=== PATIENT | female | born 1955 | race Caucasian/White ===

== ENCOUNTER 2017-09-17 17:11 | Inpatient (IN) | payer MEDICARE, MEDICAID ==
[~2017-09-17] VITALS: Ht 162.6 cm; Wt 114.3 kg
[~2017-09-17 17:11] MED LIST: ASPIR 8181 MG PO; CALCIUM 500 +1 EAC5 PO; EUCERIN CREME120 GM TOP; GERI-HYDROLAC140 GM TOP; HUMALOG100 UNIT/2 SUBQ; JANUVIA 50 MG T50 M1 PO; KEFLEX500 M2 PO; KETOCONAZOLE15 GM TOP; LANTUS100 UNIT/M SUBQ; LIORESAL 10 MG10 MG PO; LISINOPRIL5 MG PO; ONDANSETRON HCL4 M2 PO; PEPCID20 MG PO; PROTONIX40 M1 PO; VITAMIN D1000 UNI1 PO; ZOCOR20 MG PO; ZOFRAN4 MG PO
[2017-09-17] MEDS ORDERED: CARRINGTON MOIS99 G2 TOP (17:23)
[2017-09-17] MEDS ORDERED: REGLAN 10 MG TA10 MG PO (17:26)
[2017-09-17] MEDS ORDERED: THEREMS-M1 EACH PO (17:26)
[2017-09-17] MEDS ORDERED: ZANTAC 150MG T150 MG PO (17:26)
[2017-09-17] MEDS ORDERED: ZOFRAN4 MG PO (17:27)
[2017-09-17] MEDS ORDERED: NYAMYC15 GM TOP (17:27)
[2017-09-17] MEDS ORDERED: CLARITIN10 MG PO (17:27)
[2017-09-17 17:39] LABS: ABSOLUTE BASOPHILS 0.1 thou/uL (0.0-0.2); ABSOLUTE LYMPHOCYTES 1.9 thou/uL (0.8-5.3); ABSOLUTE MONOCYTES 0.6 thou/uL (0.0-1.2); ABSOLUTE NEUTROPHILS 13.1 thou/uL (1.6-8.1); BASOPHILS 0.5 %; EOSINOPHILS 0.1 %; HEMATOCRIT 47.7 % (37.0-47.0); HEMOGLOBIN 15.2 gm/dL (12.0-15.0); LYMPHOCYTES 12.3 %; MCH 24.3 pg (26.0-34.0); MCHC 31.9 g/dL (28.0-37.0); MONOCYTES 3.7 %; NUCLEATED RBCS 0 /100WBC; PLATELET COUNT* 328 thou/uL (150-400); POLYS 83.4 %; RBC 6.27 mil/uL (4.20-5.00); RDW-CV 18.7 % (10.5-14.5); WBC 15.7 thou/uL (4.0-11.0)
[2017-09-17 17:46] LABS: ANION GAP 7 mmol/L (7-16); BUN 12 mg/dL (7-18); CALCIUM 9.6 mg/dL (8.5-10.1); CHLORIDE 102 mmol/L (98-107); CO2 32 mmol/L (21-32); CREATININE 0.6 mg/dL (0.6-1.3); GLUCOSE 307 mg/dL (70-99); POTASSIUM 3.9 mmol/L (3.5-5.1); SODIUM 141 mmol/L (136-145)
[2017-09-17 17:53] LABS: ALBUMIN 3.2 g/dL (3.4-5.0); ALKALINE PHOSPHATASE 126 U/L (46-116); LIPASE 919 U/L (73-393); SGOT 21 U/L (15-37); SGPT 35 U/L (30-65); TOTAL BILIRUBIN 0.3 mg/dL (<0.1-1.0); TOTAL PROTEIN 7.6 g/dL (6.4-8.2); TROPONIN-I LEVEL <0.06 ng/mL (<0.06)
[2017-09-17 18:02] LABS: PROTIME 9.9 Seconds (9.20-11.50)
[2017-09-17 20:31] VITALS: BP 189/90
[2017-09-17 23:32] VITALS: BP 169/106
[2017-09-18 04:00] VITALS: BP 145/67
[2017-09-18 05:26] LABS: HEMOGLOBIN 14.1 gm/dL (12.0-15.0); MCH 23.9 pg (26.0-34.0); MCHC 31.4 g/dL (28.0-37.0); MPV 9.3 fl. (7.2-11.1); RBC 5.92 mil/uL (4.20-5.00); RDW-CV 19.3 % (10.5-14.5)
[2017-09-18 05:44] LABS: ALBUMIN 2.9 g/dL (3.4-5.0); CALCIUM 8.6 mg/dL (8.5-10.1); CREATININE 0.9 mg/dL (0.6-1.3); TOTAL BILIRUBIN 0.3 mg/dL (<0.1-1.0); TOTAL PROTEIN 6.3 g/dL (6.4-8.2)
[2017-09-18 05:53] LABS: WBC 32.6 thou/uL (4.0-11.0)
[2017-09-18 07:50] VITALS: BP 117/44
[2017-09-18 08:36] LABS: HEMATOCRIT 41.8 % (37.0-47.0); MCH 23.7 pg (26.0-34.0); MCHC 31.2 g/dL (28.0-37.0); MCV 75.9 fL (80.0-100.0); MPV 9.2 fl. (7.2-11.1); RBC 5.5 mil/uL (4.20-5.00); RDW-CV 18.4 % (10.5-14.5); WBC 37.3 thou/uL (4.0-11.0)
[2017-09-18 12:03] VITALS: BP 129/59
--- NOTE | 2017-09-18 13:02 | EKG ---
[place] [address] ELECTROCARDIOGRAM REPORT Name: JENNIFER AVILA Room: [address] IN [facility].#: [id number] Admission: 09/17/17 Attend Phys: Joyce Tavares MD Discharge: Date of : 51 Report #: [id number] THIS REPORT FOR: //name// [facility] ED Test Date: 2017-09-17 Test Time: 17:30:04 Pat Name: JENNIFER AVILA Department: Room: Gender: F [employer] War[employer] Officer: Idalia ESCOBEDO : 1955 Requested By: Chet Rod Order Number: [id number] MD: Scotty Rodriguez Measurements Intervals [place] Rate: 118 P: 57 KS: 143 QRS: 36 QRSD: 86 T: 53 QT: 330 QTc: 463 Interpretive Statements Sinus tachycardia Baseline wander in lead(s) V2,V6 Compared to ECG 03/24/2017 08:16:47 Heart rate has increased Electronically Signed On 09-18-2017 13:02:05 CDT by Scotty Rodriguez [email or web address] <ELECTRONICALLY SIGNED> By: Scotty Rodriguez MD, [facility] 09/18/17 1302 1730 1730 Scotty Rodriguez MD, [facility] /EPI
[2017-09-18 15:06] LABS: URINE BILIRUBIN NEGATIVE (Negative); URINE BLOOD 2+ (Negative); URINE COLOR YELLOW; URINE GLUCOSE-RANDOM 3+ (Negative); URINE KETONES NEGATIVE (Negative); URINE NITRITE-REFLEX NEGATIVE (Negative); URINE PROTEIN 1+ (Negative); URINE SPECIFIC GRAVITY >= 1.030 (1.005-1.030); URINE UROBILINOGEN 0.2 E.U./dl (0.2-1.0)
[2017-09-18 15:11] LABS: URINE CLARITY TURBID; URINE LEUKOCYTES-REFLEX 2+ (Negative)
[2017-09-18 15:19] LABS: SQUAMOUS 4-10 Moderate /LPF (0-3); URINE WBC-REFLEX >25 Many /HPF (0-5); WBC CLUMPS Few (None Seen)
[2017-09-18 15:20] LABS: AMORPHOUS PHOSPHATES Moderate /LPF (None Seen); CASTS None Seen /LPF (None Seen); MUCUS 0-3 Light strn/LPF (None Seen)
[2017-09-18 16:00] VITALS: BP 109/69
[2017-09-18 20:00] VITALS: BP 118/58
[2017-09-18 23:59] VITALS: BP 126/47
[2017-09-19 03:33] VITALS: BP 127/66
[2017-09-19 04:56] LABS: CALCIUM 7.4 mg/dL (8.5-10.1); CREATININE 0.5 mg/dL (0.6-1.3); POTASSIUM 3.8 mmol/L (3.5-5.1)
[2017-09-19 04:59] LABS: HEMATOCRIT 35.4 % (37.0-47.0); MCH 24.3 pg (26.0-34.0); MCHC 31.2 g/dL (28.0-37.0); MPV 8.9 fl. (7.2-11.1); NUCLEATED RBCS 0 /100WBC; PLATELET COUNT* 237 thou/uL (150-400); RBC 4.54 mil/uL (4.20-5.00); RDW-CV 19.1 % (10.5-14.5); WBC 23.4 thou/uL (4.0-11.0)
[2017-09-19 05:44] LABS: ABSOLUTE MONOCYTES 1.4 thou/uL (0.0-1.2); ANISOCYTOSIS 1+; PLATELET ESTIMATE ADEQUATE; POIKILOCYTOSIS 1+
[2017-09-19 08:30] VITALS: BP 130/59
[2017-09-19 10:47] VITALS: BP 127/66
--- NOTE | 2017-09-19 11:52 | CON ---
[address] [address] CONSULTATION Name: JENNIFER AVILA Room: [address] IN .R.#: [id number] Admission: 09/17/17 Attend Phys: Joyce Tavares MD Discharge: Date of : 51 Report #: [id number] THIS REPORT FOR: //name// CC: Joyce Garcia DATE OF SERVICE: 09/18/2017 ATTENDING PHYSICIAN: Dr. Tavares. REASON FOR EVALUATION: Pancreatitis with marked leukocytosis. HISTORY OF PRESENT ILLNESS: Chart reviewed, patient examined. This is a 62-year-old woman with multiple sclerosis diagnosed in her 20s. Also has diabetes mellitus and paraplegia as a complication. She has got issue of a sacral decubitus ulcer, but developed nausea with emesis. Evaluation suggested possible gastric outlet obstruction. Initial white count was mildly elevated; however, had increased over serial studies up to 37,000. She is moderately encephalopathic and appears to be quite ill. She did have a temperature max of 101.0, more recently she was afebrile. Evaluation included a lactic acid of 2.0 and lipase elevated at 919, however, repeat was this morning down to 241. Urinalysis did show greater than 25 white cells and 10-30 bacteria. Empirically started on antibiotics consisted of ceftriaxone and levofloxacin. ALLERGIES: None known. CURRENT MEDICATIONS: Include bisacodyl, insulin, levofloxacin 500 IV daily, docusate sodium, ceftriaxone 1 gram q. 12 and pantoprazole. PAST MEDICAL HISTORY: As described above, diabetes mellitus, multiple sclerosis, hypertension, history of depression, anxiety and some paraplegia with incontinence. SOCIAL HISTORY: Smokes 10 cigarettes per day. No ethanol. No illicit drug use. FAMILY HISTORY: Noncontributory. REVIEW OF SYSTEMS: Somewhat limited. Does admit to some mild dyspnea. PHYSICAL EXAMINATION: GENERAL: She is chronically ill appearing, undernourished, in mild to moderate distress. VITAL SIGNS: Temperature now 98.3 with a T-max of 101.0, pulse 107, respirations 18 and blood pressure 109/69. SKIN: Warm, dry [place] [address] CONSULTATION Name: JENNIFER AVILA Room: [address] IN [facility]#: [id number] Admission: 09/17/17 Attend Phys: Joyce Tavares MD Discharge: Date of : 51 Report #: [id number] HEENT: Some ____ of the cervical spine although I do not think it is true meningismus. LUNGS: Few scattered coarse breath sounds and crackles at the bases. HEART: Tachycardic, regular and soft systolic murmur. ABDOMEN: Soft. It is distended. I do not appreciate any peritoneal signs. GENITOURINARY AND RECTAL: Deferred. LABORATORY DATA: Urinalysis as described above greater than 25 white cells. Lactic acid 2.0. CBC most recently white count 37.3, H and H 13.0 and 41.8 and platelets of 308. Sodium 141, potassium 3.9, chloride 102, bicarbonate is 32, anion gap of 7, BUN and creatinine 12 and 0.6 and glucose was 307. AST of 21, ALT of 35. Lipase of 919. Estimated GFR 101. Total protein 7.6 and albumin of 3.2. ASSESSMENT: Gastric outlet obstruction in the setting of had developed some fevers, certainly suggests probably has a complicated urinary tract infection as well, risk of aspiration. We will go ahead and check a chest x-ray. Continue empiric therapy for now. We will monitor expectantly. Certainly risk for nosocomial related infectious complications, not excluding adverse drug effects. <ELECTRONICALLY SIGNED> By: Tobin Ortiz MD 09/19/17 1152 1612 0505Jochristina Ortiz MD /nt
[2017-09-19 14:00] VITALS: BP 94/44
[2017-09-19 16:00] VITALS: BP 87/39
[2017-09-19 20:00] VITALS: BP 114/61
[2017-09-20] VITALS: BP 136/62
[2017-09-20 04:00] VITALS: BP 114/70
[2017-09-20 04:52] LABS: PCO2 37.5 mmHg (35.0-45.0)
[2017-09-20 04:53] LABS: BE -1.6 mmol/L (-2 to +3); HCO3 22.8 mmol/L (22.0-26.0); PO2 54.7 mmHg (75.0-100.0)
[2017-09-20 09:00] VITALS: BP 128/75
[2017-09-20 09:27] LABS: ABSOLUTE BASOPHILS 0.1 thou/uL (0.0-0.2); ABSOLUTE EOSINOPHILS 0.3 thou/uL (0.0-0.7); ABSOLUTE LYMPHOCYTES 2.3 thou/uL (0.8-5.3); ABSOLUTE MONOCYTES 0.7 thou/uL (0.0-1.2); ABSOLUTE NEUTROPHILS 10.1 thou/uL (1.6-8.1); BASOPHILS 0.6 %; EOSINOPHILS 2.1 %; HEMATOCRIT 38.1 % (37.0-47.0); HEMOGLOBIN 11.7 gm/dL (12.0-15.0); LYMPHOCYTES 17.2 %; MCH 24.1 pg (26.0-34.0); MCHC 30.7 g/dL (28.0-37.0); MCV 78.5 fL (80.0-100.0); MONOCYTES 5.2 %; MPV 9.4 fl. (7.2-11.1); NUCLEATED RBCS 0 /100WBC; PLATELET COUNT* 246 thou/uL (150-400); POLYS 74.9 %; RBC 4.86 mil/uL (4.20-5.00); WBC 13.4 thou/uL (4.0-11.0)
[2017-09-20 09:36] LABS: ALBUMIN 2.1 g/dL (3.4-5.0); CALCIUM 7.6 mg/dL (8.5-10.1); CREATININE 0.5 mg/dL (0.6-1.3); POTASSIUM 3.7 mmol/L (3.5-5.1); TOTAL BILIRUBIN 0.3 mg/dL (<0.1-1.0); TOTAL PROTEIN 4.9 g/dL (6.4-8.2)
[2017-09-20 12:52] VITALS: BP 155/82
[2017-09-20 16:44] VITALS: BP 149/70
[2017-09-20 18:07] LABS: HSV 1 DNA Negative (Negative); HSV 2 DNA Negative (Negative)
[2017-09-20 20:00] VITALS: BP 141/80
[2017-09-21] VITALS: BP 148/67
[2017-09-21 02:04] LABS: BE 1.9 mmol/L (-2 to +3); HCO3 25.2 mmol/L (22.0-26.0); PO2 92.2 mmHg (75.0-100.0); pH 7.475 (7.340-7.450)
[2017-09-21 02:58] LABS: URINE BILIRUBIN NEGATIVE (Negative); URINE BLOOD NEGATIVE (Negative); URINE CLARITY CLEAR; URINE COLOR YELLOW; URINE GLUCOSE-RANDOM TRACE (Negative); URINE KETONES TRACE (Negative); URINE LEUKOCYTES-REFLEX NEGATIVE (Negative); URINE NITRITE-REFLEX NEGATIVE (Negative); URINE PROTEIN NEGATIVE (Negative); URINE SPECIFIC GRAVITY 1.015 (1.005-1.030); URINE UROBILINOGEN 0.2 E.U./dl (0.2-1.0)
[2017-09-21 04:00] VITALS: BP 143/52
[2017-09-21 04:33] LABS: ABSOLUTE BASOPHILS 0.1 thou/uL (0.0-0.2); ABSOLUTE EOSINOPHILS 0.3 thou/uL (0.0-0.7); ABSOLUTE LYMPHOCYTES 2.3 thou/uL (0.8-5.3); ABSOLUTE MONOCYTES 0.7 thou/uL (0.0-1.2); ABSOLUTE NEUTROPHILS 8.2 thou/uL (1.6-8.1); BASOPHILS 0.5 %; EOSINOPHILS 2.8 %; HEMATOCRIT 36.8 % (37.0-47.0); HEMOGLOBIN 11.6 gm/dL (12.0-15.0); LYMPHOCYTES 19.7 %; MCH 24.1 pg (26.0-34.0); MCHC 31.5 g/dL (28.0-37.0); MCV 76.6 fL (80.0-100.0); MONOCYTES 6.3 %; MPV 8.5 fl. (7.2-11.1); NUCLEATED RBCS 0 /100WBC; PLATELET COUNT* 265 thou/uL (150-400); POLYS 70.7 %; RBC 4.81 mil/uL (4.20-5.00); RDW-CV 18.3 % (10.5-14.5); WBC 11.5 thou/uL (4.0-11.0)
[2017-09-21 04:46] LABS: ALBUMIN 2.1 g/dL (3.4-5.0); CALCIUM 7.7 mg/dL (8.5-10.1); CREATININE 0.5 mg/dL (0.6-1.3); POTASSIUM 3.2 mmol/L (3.5-5.1); TOTAL BILIRUBIN 0.4 mg/dL (<0.1-1.0); TOTAL PROTEIN 5.8 g/dL (6.4-8.2)
[2017-09-21 08:00] VITALS: BP 148/80
[2017-09-21 12:40] VITALS: BP 157/72
[2017-09-21 16:33] VITALS: BP 137/69
[2017-09-21 20:00] VITALS: BP 136/70
[2017-09-22] VITALS: BP 129/60
[2017-09-22 04:00] VITALS: BP 139/62
[2017-09-22 04:53] LABS: HEMATOCRIT 37.4 % (37.0-47.0); HEMOGLOBIN 11.6 gm/dL (12.0-15.0); MCH 24.1 pg (26.0-34.0); MCHC 31.1 g/dL (28.0-37.0); MCV 77.6 fL (80.0-100.0); MPV 8.7 fl. (7.2-11.1); RBC 4.82 mil/uL (4.20-5.00); RDW-CV 18.1 % (10.5-14.5); WBC 10.4 thou/uL (4.0-11.0)
[2017-09-22 05:00] LABS: CALCIUM 8.1 mg/dL (8.5-10.1); CREATININE 0.4 mg/dL (0.6-1.3); MAGNESIUM 2.1 mg/dL (1.8-2.4); POTASSIUM 3.2 mmol/L (3.5-5.1)
[2017-09-22 08:00] VITALS: BP 130/63
--- NOTE | 2017-09-22 10:00 | CON ---
[address] [address] CONSULTATION Name: JENNIFER AVILA Room: [address] IN M.R.#: [id number] Admission: 09/17/17 Attend Phys: Joyce Tavares MD Discharge: Date of : 53 Report #: [id number] THIS REPORT FOR: //name// CC: Joyce Garcia MD DICTATED BY: Jess Lopez [facility] DATE OF SERVICE: 09/18/2017 PRIMARY CARE PHYSICIAN: Carlos Garcia MD Please note at the time of this dictation, the patient was seen and physically examined by myself. REASON FOR CONSULTATION: Nausea and vomiting and possible gastric outlet obstruction. HISTORY OF PRESENT ILLNESS: This is a 62-year-old female who presented from [facility] yesterday afternoon after an abrupt onset of nausea and vomiting. In speaking with her sister, she states she was there and left at 2:00. The patient had no complaints of any nausea or vomiting after eaten her lunch and within 30 minutes after she left, she started having significant nausea and vomiting prompting them to bring her to the Emergency Room. She is unaware of when she has had her last bowel movement and the patient is unable to give us any information in regards to that as well. The patient did have an EGD with us back in March 2017 that showed grade B esophagitis. She was dilated, was noted to have monilial esophagitis and treated for that. Large hiatal hernia was noted. Normal stomach and she had a duodenal diverticulum that was noted. Currently, the patient has an NG down and initially when it was placed she had 600 mL that were removed with no evidence of any bright red blood or any melena at that time. She denies any fever or chills or any abdominal pain at this time. ALLERGIES: No known drug allergies. MEDICATIONS: From home include insulin, metoclopramide, Zantac, multivitamin, Claritin, nystatin, Zofran, aspirin, baclofen, Os-Kevin, Januvia, ketaconazole, Zestril, Zocor, vitamin D, and Eucerin cream. PAST MEDICAL HISTORY: Diabetes, MS, hypertension, depression, anxiety, paraplegic, and venous insufficiency. PAST SURGICAL HISTORY: [place] [address] CONSULTATION Name: JENNIFER AVILA Room: [address] IN [facility].#: [id number] Admission: 09/17/17 Attend Phys: Joyce Tavares MD Discharge: Date of : 53 Report #: [id number] FAMILY HISTORY: Noncontributory. SOCIAL HISTORY: History of tobacco use in the past. Denies any alcohol or illegal drug use at this time. REVIEW OF SYSTEMS: Twelve-point review of systems is essentially negative except what is mentioned in the HPI. PHYSICAL EXAMINATION: VITAL SIGNS: Temperature 36.9, pulse 116, respirations 18, blood pressure 129/59. HEART: Regular rate and rhythm. LUNGS: Diminished, but clear. ABDOMEN: Soft, positive bowel sounds in all 4 quadrants with no masses or tenderness noted. NG in place. LABORATORY DATA: Hemoglobin is 13, hematocrit 41.8, white count is 37.3, platelets 303, MCV is 75.9. Sodium 144, potassium 4, chloride 106, CO2 of 26, BUN is 14, creatinine 0.9, GFR is 63, and glucose is 275. CT of the abdomen and pelvis showed herniation of the distal stomach into the lower mediastinum with associated gastric outlet obstruction with significant fluid distention in the stomach consistent with component of obstruction and also possible volvulus, fecal impaction and moderately large mesenteric adenopathy which was also noted on CT in March and she has got abnormal endometrial thickening as well. Abdominal x-ray done this morning shows hiatal hernia and the NG tube is in position after repositioning showing a decrease in fluid content and decrease in size of the stomach and hiatal hernia. IMPRESSION: 1. Nausea and vomiting, improved. 2. Gastric outlet obstruction, resolved. 3. Fecal impaction and constipation. 4. Leukocytosis. 5. History of paraplegic and mitral stenosis. PLAN: 1. Dulcolax suppository 20 mg followed up with a soapsuds enema to see if this will relieve her fecal impaction. 2. EGD tomorrow with Dr. Morgan. 3. Continue Protonix b.i.d. Thank you for allowing us to participate in this patient's care. Please do not hesitate to call with any questions in regard to this consult. I have personally seen and examined the patient and reviewed labs and imaging. The patient with paraplegia, diabetes mellitus, MS, who also has decubitus [address] [place] [address] CONSULTATION Name: JENNIFER AVILA Room: [address] IN M.R.#: [id number] Admission: 09/17/17 Attend Phys: Joyce Tavares MD Discharge: Date of : 53 Report #: [id number] ulcer. She had an upper endoscopy in the last March which showed grade B esophagitis, large hiatal hernia, duodenal diverticulum and Dinora. She presented with nausea, vomiting and had a CT of abdomen and pelvis, which showed a hiatal hernia with part of the stomach sitting in the chest cavity. Since admission, NG tube has been placed and total of 700 mL of dark color gastric aspirates has been collected. The patient currently denies nausea, vomiting or abdominal pain. Her abdomen is soft, but denies any bowel movement or passing gas from below. She also has fecal impaction that is confirmed by CT scan. She has been given enemas with minimal results. We will continue NG tube to intermittent suction and perform an upper endoscopy to further evaluate her upper GI. If she does not have any significant bowel movement by tomorrow, we will also perform flex sig for fecal disimpaction. <ELECTRONICALLY SIGNED> By: Luisito Morgan MD 09/22/17 1000 1258 2250Luisito Morgan MD /nt
[2017-09-22 11:30] VITALS: BP 146/67
[2017-09-22 15:11] LABS: % SATURATION 11 % (20-39); IRON 25 ug/dL (50-175)
[2017-09-22 16:00] VITALS: BP 144/85
[2017-09-23] VITALS: BP 130/49
[2017-09-23 04:00] VITALS: BP 130/78
[2017-09-23 04:52] LABS: HEMATOCRIT 39.9 % (37.0-47.0); HEMOGLOBIN 12.4 gm/dL (12.0-15.0); MCH 24.5 pg (26.0-34.0); MCHC 31.2 g/dL (28.0-37.0); MCV 78.6 fL (80.0-100.0); MPV 8.6 fl. (7.2-11.1); RBC 5.08 mil/uL (4.20-5.00); RDW-CV 18.2 % (10.5-14.5); WBC 10.1 thou/uL (4.0-11.0)
[2017-09-23 05:22] LABS: CALCIUM 8.3 mg/dL (8.5-10.1); CREATININE 0.5 mg/dL (0.6-1.3); MAGNESIUM 2.2 mg/dL (1.8-2.4); POTASSIUM 4.6 mmol/L (3.5-5.1)
[2017-09-23 08:00] VITALS: BP 132/49
[2017-09-23 12:25] VITALS: BP 120/41
[2017-09-23 15:51] VITALS: BP 130/58
[2017-09-23 20:00] VITALS: BP 109/56
[2017-09-24] VITALS: BP 141/66
[2017-09-24 04:00] VITALS: BP 122/55
[2017-09-24 08:30] VITALS: BP 146/66
[2017-09-24 12:18] VITALS: BP 106/61
[2017-09-24 15:38] VITALS: BP 138/76
[2017-09-25] VITALS: BP 116/49
[2017-09-25 04:18] VITALS: BP 115/55
[2017-09-25 08:00] VITALS: BP 133/69
[2017-09-25 11:45] VITALS: BP 121/53
[2017-09-25 11:46] VITALS: BP 121/53
[2017-09-25] MEDS ORDERED: CEFUROXIME500 MG PO (11:54)
[2017-09-25] MEDS ORDERED: FLEET ENEMA133 ML RECTAL (11:56)
[2017-09-25] MEDS ORDERED: PROTONIX40 M1 PO (13:16)
[2017-09-25 16:00] VITALS: BP 111/66
--- NOTE | 2017-10-04 08:15 | CON ---
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 This patient gives a history that long time ago, she was diagnosed with that. She never had a spinal tap, but she believes she did have an MRI. She does not know what neurologist she saw. She lives in a custodial and she does not have much strength in the lower extremities. At this time, she was admitted with nausea and vomiting. She never had any ophthalmological symptom associated with this. REVIEW OF SYSTEMS: Indicate that this patient has paraplegia, which has been diagnosed secondary to primary progressive MS. She has a history of diabetes, hypertension, depression, anxiety, venous insufficiency. She does have some GI issues and she takes baclofen for the spasms. She thinks her cognition is still intact. Her vision and hearing is still intact. She denies any cardiac or respiratory symptoms associated with present symptomatology. She did have GI and symptom. She does not have any new musculoskeletal, constitutional, dermatological, hematological, throat or allergic symptom associated with present symptomatology. She is moderately built individual who does not have any dysmorphic features of eyes, ears and face. Her visions and hearing looks adequate. PAST MEDICAL HISTORY: Positive for diagnosis of primary progressive MS. FAMILY HISTORY: Negative for early age stroke. SOCIAL HISTORY: She lives in a custodial. PHYSICAL EXAMINATION: Indicate she is alert. She can tell me what month it is. She could not tell me the day. Her speech, concentration, fund of knowledge and memory is at her baseline. Cranial nerve examination 212 looks mostly unremarkable. She has reasonable strength in all upper extremities, but it is estimated to be about 4 or 3 x 5. She is very ataxic in the right upper extremity. In the lower extremity, her position sense is present, but she has no strength. Her tone is symmetrical, but different in the upper and the lower extremities. Her reflexes could be elicited in the lower extremity. Her pulses are difficult to feel. She has no edema, cyanosis or jaundice. She has no thyroid mass. There is no cardiac significant abnormality. No respiratory difficulty or rhonchi was noticed. Her vital signs indicate a blood pressure of 138/76, respirations 17, pulse is 93, temperature is 97.7. [place] [address] CONSULTATION Name: JENNIFER AVILA Room: [address] IN .R.#: [id number] Admission: 09/17/17 Attend Phys: Joyce Tavares MD Discharge: 09/25/17 Date of : 53 Report #: [id number] LABORATORY DATA: Indicate a white count of 10.1, which is better than when she came in, but sodium is 141. CT scan of the head showed white matter changes. IMPRESSION: This patient's clinical presentation is suggestive of primary progressive multiple sclerosis, but I do not know how established the diagnosis was. I did discuss with her that there is a new medication, which has been approved for primary progressive multiple sclerosis. However, that does not reverse the damage which is already done. It might slow down the progression, but has significant side effects. Her diagnosis need to be more conformed and she may even need a spinal tap because she never had one. I gave her the option of doing it as an inpatient or outpatient. She would like to do it as an outpatient and I told her that she can come to my office and we can try to arrange that. If she would like to start the workup here, we can do the MRI of the brain and the whole spine here and the rest of the workup as an outpatient, but to me she indicated she would like to get it done as an outpatient. I will discuss this patient with you tomorrow. <ELECTRONICALLY SIGNED> By: Beto Gomez MD 10/04/17 0815 05 2329Beto Gomez MD /nt
== END 2017-09-25 18:46 | DRG 177 ==
LOC: M.ERS 17:11 → M.TBA-ER 18:15 → M.2W 19:38
PROVIDERS: Family Medicine; Internal Medicine; Specialist; ADMIT Internal Medicine
PROC: 0DB98ZX Excision of Duodenum, Via Natural or Artificial Opening Endoscopic, Diagnostic (ICD-10-PCS; principal; 2017-09-19)
DX: J69.0 Pneumonitis due to inhalation of food and vomit (principal); K85.90 Acute pancreatitis without necrosis or infection, unspecified; J96.01 Acute respiratory failure with hypoxia; G93.40 Encephalopathy, unspecified; R65.10 Systemic inflammatory response syndrome (SIRS) of non-infectious origin without acute organ dysfunction; G82.20 Paraplegia, unspecified; K31.1 Adult hypertrophic pyloric stenosis; E44.0 Moderate protein-calorie malnutrition; Z68.41 Body mass index [BMI] 40.0-44.9, adult; K21.0 Gastro-esophageal reflux disease with esophagitis; E11.43 Type 2 diabetes mellitus with diabetic autonomic (poly)neuropathy; I10 Essential (primary) hypertension; F32.9 Major depressive disorder, single episode, unspecified; F41.9 Anxiety disorder, unspecified; F17.210 Nicotine dependence, cigarettes, uncomplicated; K56.41 Fecal impaction; J01.00 Acute maxillary sinusitis, unspecified; D72.829 Elevated white blood cell count, unspecified; K31.84 Gastroparesis; I05.0 Rheumatic mitral stenosis; G35 Multiple sclerosis; E11.65 Type 2 diabetes mellitus with hyperglycemia; J44.9 Chronic obstructive pulmonary disease, unspecified; K22.70 Barrett's esophagus without dysplasia; K44.9 Diaphragmatic hernia without obstruction or gangrene; K22.2 Esophageal obstruction; K26.9 Duodenal ulcer, unspecified as acute or chronic, without hemorrhage or perforation; L89.150 Pressure ulcer of sacral region, unstageable; D64.9 Anemia, unspecified; E88.09 Other disorders of plasma-protein metabolism, not elsewhere classified; R93.8 Abnormal findings on diagnostic imaging of other specified body structures; E87.6 Hypokalemia; Z79.2 Long term (current) use of antibiotics; Z79.82 Long term (current) use of aspirin; Z79.4 Long term (current) use of insulin; Z79.899 Other long term (current) drug therapy

== ENCOUNTER 2017-10-20 23:47 | Emergency (ER) | payer MEDICARE, MEDICAID ==
[~2017-10-20] VITALS: Ht 162.6 cm; Wt 94.3 kg
[~2017-10-20 23:47] MED LIST changes: +CARRINGTON MOIS99 G2 TOP; +CEFUROXIME500 MG PO; +CLARITIN10 MG PO; +FLEET ENEMA133 ML RECTAL; +NYAMYC15 GM TOP; +REGLAN 10 MG TA10 MG PO; +THEREMS-M1 EACH PO; +ZANTAC 150MG T150 MG PO
[2017-10-21] MEDS ORDERED: LOCOID 0.1% CRE15 GM TOP (00:01)
[2017-10-21] MEDS ORDERED: VITAMINC500 PO (00:01)
[2017-10-21] MEDS ORDERED: OSTERA TABLET1 EAC1 PO (00:05)
[2017-10-21] MEDS ORDERED: MIRALAX17 GM PO (00:06)
[2017-10-21 00:35] LABS: ABSOLUTE BASOPHILS 0.1 thou/uL (0.0-0.2); ABSOLUTE EOSINOPHILS 0.1 thou/uL (0.0-0.7); ABSOLUTE LYMPHOCYTES 1.9 thou/uL (0.8-5.3); ABSOLUTE MONOCYTES 0.6 thou/uL (0.0-1.2); ABSOLUTE NEUTROPHILS 11.1 thou/uL (1.6-8.1); BASOPHILS 0.7 %; EOSINOPHILS 0.6 %; HEMATOCRIT 44.2 % (37.0-47.0); HEMOGLOBIN 13.6 gm/dL (12.0-15.0); MCH 24.5 pg (26.0-34.0); MCHC 30.8 g/dL (28.0-37.0); MCV 79.7 fL (80.0-100.0); MONOCYTES 4.3 %; MPV 8.9 fl. (7.2-11.1); NUCLEATED RBCS 0 /100WBC; PLATELET COUNT* 250 thou/uL (150-400); POLYS 80.4 %; RBC 5.54 mil/uL (4.20-5.00); RDW-CV 17.6 % (10.5-14.5); WBC 13.8 thou/uL (4.0-11.0)
[2017-10-21 00:40] LABS: CALCIUM 8.7 mg/dL (8.5-10.1); CREATININE 0.8 mg/dL (0.6-1.3); POTASSIUM 4.6 mmol/L (3.5-5.1)
[2017-10-21 00:55] LABS: ALBUMIN 2.7 g/dL (3.4-5.0); TOTAL BILIRUBIN 0.2 mg/dL (<0.1-1.0); TOTAL PROTEIN 6.5 g/dL (6.4-8.2)
[2017-10-21 00:59] LABS: NT-PRO BRAIN NAT PEPTIDE 42 pg/mL (<300); TROPONIN-I LEVEL <0.06 ng/mL (<0.06)
[2017-10-21 02:59] LABS: URINE BILIRUBIN NEGATIVE (Negative); URINE BLOOD NEGATIVE (Negative); URINE CLARITY CLEAR; URINE COLOR YELLOW; URINE GLUCOSE-RANDOM 3+ (Negative); URINE KETONES NEGATIVE (Negative); URINE LEUKOCYTES-REFLEX NEGATIVE (Negative); URINE NITRITE-REFLEX NEGATIVE (Negative); URINE PROTEIN NEGATIVE (Negative); URINE SPECIFIC GRAVITY <= 1.005 (1.005-1.030); URINE UROBILINOGEN 0.2 E.U./dl (0.2-1.0)
[2017-10-21 03:48] VITALS: BP 139/73
--- NOTE | 2017-10-22 13:32 | EKG ---
[place] [address] ELECTROCARDIOGRAM REPORT Name: JENNIFER AVILA Room: [facility]#: [id number] Admission: 10/20/17 Attend Phys: Discharge: 10/21/17 Date of : 53 Report #: [id number] THIS REPORT FOR: //name// [facility] ED Test Date: 2017-10-21 Test Time: 00:18:03 Pat Name: JENNIFER AVILA Department: Room: Gender: F Housing Officer: WALTER : 1955 Requested By: Homero Saldaña Order Number: [id number] MD: Abdelrahman Morton Measurements Intervals [place] Rate: 105 P: 72 VT: 132 QRS: 63 QRSD: 88 T: 32 QT: 344 QTc: 455 Interpretive Statements Sinus tachycardia Compared to ECG 09/17/2017 17:30:04 No significant changes Electronically Signed On 10-22-2017 13:32:27 CDT by Abdelrahman Morton [email or web address] <ELECTRONICALLY SIGNED> By: Abdelrahman Morton MD, [facility] 10/22/17 1332 0018 001 Abdelrahman Morton MD, FACC /EPI
== END 2017-10-21 04:18 | disposition home or self-care (01) ==
LOC: M.ERS 23:47
PROVIDERS: Emergency Medicine
DX: R11.10 Vomiting, unspecified (principal); E11.9 Type 2 diabetes mellitus without complications; I10 Essential (primary) hypertension; F32.9 Major depressive disorder, single episode, unspecified; F41.9 Anxiety disorder, unspecified; F17.210 Nicotine dependence, cigarettes, uncomplicated; Z79.4 Long term (current) use of insulin

== ENCOUNTER 2017-11-04 06:37 | Inpatient (IN) | payer MEDICARE, MEDICAID ==
[~2017-11-04] VITALS: Ht 162.6 cm; Wt 95.6 kg
--- NOTE | ~2017-11-04 | PROC ---
[address] [address] PROCEDURE REPORT Name: JENNIFER AVILA Room: [address] IN .R.#: [id number] Admission: 11/04/17 Attend Phys: Zohra Workman Discharge: Date of : 53 Report #: [id number] THIS REPORT FOR: //name// For GI report, please see the Provation report in Perceptive 7 content. By: [facility]8Medical Records Staff YOSEPH /ALEXSANDRA
[~2017-11-04 06:37] MED LIST changes: +LOCOID 0.1% CRE15 GM TOP; +MIRALAX17 GM PO; +OSTERA TABLET1 EAC1 PO; +VITAMINC500 PO
[2017-11-04 06:38] VITALS: BP 144/82
[2017-11-04 07:14] LABS: ABSOLUTE BASOPHILS 0.1 thou/uL (0.0-0.2); ABSOLUTE LYMPHOCYTES 2.6 thou/uL (0.8-5.3); ABSOLUTE MONOCYTES 0.7 thou/uL (0.0-1.2); ABSOLUTE NEUTROPHILS 9.1 thou/uL (1.6-8.1); BASOPHILS 1.1 %; EOSINOPHILS 0.4 %; HEMOGLOBIN 14.6 gm/dL (12.0-15.0); LYMPHOCYTES 20.6 %; MCH 24.8 pg (26.0-34.0); MCV 79.9 fL (80.0-100.0); MONOCYTES 5.6 %; MPV 8.8 fl. (7.2-11.1); NUCLEATED RBCS 0 /100WBC; PLATELET COUNT* 331 thou/uL (150-400); POLYS 72.3 %; RBC 5.89 mil/uL (4.20-5.00); RDW-CV 17.1 % (10.5-14.5); WBC 12.5 thou/uL (4.0-11.0)
[2017-11-04 07:32] LABS: ANION GAP 3 mmol/L (7-16); BUN 10 mg/dL (7-18); CHLORIDE 103 mmol/L (98-107); CO2 35 mmol/L (21-32); CREATININE 0.8 mg/dL (0.6-1.3); GLUCOSE 327 mg/dL (70-99); POTASSIUM 3.7 mmol/L (3.5-5.1); SODIUM 141 mmol/L (136-145)
[2017-11-04 07:39] LABS: ALKALINE PHOSPHATASE 112 U/L (46-116); LIPASE 120 U/L (73-393); SGOT 20 U/L (15-37); SGPT 47 U/L (30-65); TOTAL BILIRUBIN 0.2 mg/dL (<0.1-1.0); TROPONIN-I LEVEL <0.06 ng/mL (<0.06)
[2017-11-04 09:03] LABS: URINE BILIRUBIN NEGATIVE (Negative); URINE BLOOD NEGATIVE (Negative); URINE CLARITY CLEAR; URINE COLOR YELLOW; URINE GLUCOSE-RANDOM 3+ (Negative); URINE KETONES TRACE (Negative); URINE LEUKOCYTES-REFLEX NEGATIVE (Negative); URINE NITRITE-REFLEX NEGATIVE (Negative); URINE PROTEIN NEGATIVE (Negative); URINE SPECIFIC GRAVITY 1.015 (1.005-1.030); URINE UROBILINOGEN 0.2 E.U./dl (0.2-1.0)
[2017-11-04 11:20] VITALS: BP 138/81
[2017-11-04 12:00] VITALS: BP 142/85
--- NOTE | 2017-11-04 18:11 | NUR ---
PT ADMITTED TO ROOM 314. PT IS A&OX4 AND ABLE TO MAKE NEEDS KNOWN. NO C/O PAIN. PT STARTED ON CLEAR LIQUID DIET THIS EVENING, NO N/V/D NOTED THIS SHIFT. TURNED Q2, INCONTINENT OF URINE. IVF INFUSING ORDERED, FALL RISK PROTOCOL IN PLACE. PT IN BED, CALL LIGHT IN REACH
--- NOTE | 2017-11-04 19:35 | EKG ---
[place] [address] ELECTROCARDIOGRAM REPORT Name: JENNIFER AVILA Room: [address] IN ..#: [id number] Admission: 11/04/17 Attend Phys: Zohra Workman Discharge: Date of : 53 Report #: [id number] THIS REPORT FOR: //name// [facility] ED Test Date: 2017-11-04 Test Time: 06:56:06 Pat Name: JENNIFER AVILA Department: Room: Gender: Professor Of Practice: Idalia ESCOBEDO : 1955 Requested By: Castillo Miranda Order Number: [id number] MD: Stephen Mckeon Measurements Intervals [place] Rate: 113 P: 67 [place]: 135 QRS: 44 QRSD: 85 T: 54 QT: 337 QTc: 462 Interpretive Statements Sinus tachycardia Probable left atrial enlargement Delayed R-wave progression Baseline wander in lead(s) V4 Compared to ECG 10/21/2017 00:18:03 No significant changes noted Electronically Signed On 11-04-2017 19:35:23 CDT by Stephen Mckeon [email or web address] <ELECTRONICALLY SIGNED> By: Stephen Mckeon MD, FACC 11/04/17 1935 0656 0656 Stephen Mckeon MD, [facility] /EPI
[2017-11-05 00:02] VITALS: BP 153/61
--- NOTE | 2017-11-05 05:28 | NUR ---
ASSESSMENT COMPLETE. PT UP MOST OF THE NIGHT. PT HAD MULTIPLE EPISODES OF COFFEE GROUND EMESIS. DR NOTIFIED AND PROTONIX IV ORDERED AND GIVEN AT 0013. PT HAS HAD NO MORE VOMITTING SINCE. PT SLEEPING AT THIS TIME. PT INCONT DURING THE NIGHT. Q2 TURN FOR SKIN INTEGRITY. PT IS ON 2L PER NC WITH ADEQAUTE SATS. PT REPORTS SHE DOES NOT WEAR O2 AT HOME. IV FLUIDS INFUSING. SEE ASSESSMENT AND VITALS FOR OTHER DETAILS. CALL LIGHT WITHIN REACH, WILL CONTINUE PLAN OF CARE
[2017-11-05 08:35] VITALS: BP 128/74
[2017-11-05 09:37] LABS: CALCIUM 8.4 mg/dL (8.5-10.1); CREATININE 0.8 mg/dL (0.6-1.3); MAGNESIUM 2.1 mg/dL (1.8-2.4)
--- NOTE | 2017-11-05 15:26 | NUR ---
SW met with pt to complete initial assessment, introduce self, and SW role. SW also talked with Vickie from [facility] who confirmed they will be able to accept pt home to LTC at [place]. Pt alert, oriented and did not express any needs at this time. Pt confirms that she plans to return to [facility] LTC at [place]. Pt has a manual wc and [facility] still claims pt is not safe with electric wc and is not open for discussion. SW to continue to follow to assist with safe dc planning.
[2017-11-05 16:04] VITALS: BP 114/64
[2017-11-05 18:15] LABS: ABSOLUTE BASOPHILS 0.2 thou/uL (0.0-0.2); ABSOLUTE MONOCYTES 1.2 thou/uL (0.0-1.2); ABSOLUTE NEUTROPHILS 12.8 thou/uL (1.6-8.1); HEMATOCRIT 43.1 % (37.0-47.0); HEMOGLOBIN 13.2 gm/dL (12.0-15.0); LYMPHOCYTES 21.8 %; MCH 24.9 pg (26.0-34.0); MCHC 30.6 g/dL (28.0-37.0); MCV 81.6 fL (80.0-100.0); MONOCYTES 6.6 %; MPV 9.1 fl. (7.2-11.1); NUCLEATED RBCS 0 /100WBC; PLATELET COUNT* 325 thou/uL (150-400); POLYS 70.6 %; RBC 5.28 mil/uL (4.20-5.00); RDW-CV 17.7 % (10.5-14.5); WBC 18.2 thou/uL (4.0-11.0)
--- NOTE | 2017-11-05 18:56 | NUR ---
PT CONT ON UNIT FOR N/V. HAS FELT BETTER TODAY AND NO EPISODES OF VOMITING NOTED. PT IS GETTING PROTONIX IV BID AND PT FEELS THAT IT HAS HELPED. GI CONTSULT TODAY, EGD SCHEDULED FOR TOMORORROW WITH NPO AFTER MIDNIGHT. CONT ON NS @100 ML/HR WITH IV PATENT AND INFUSING, ACCU CHECKS AND INSULIN GIVEN PER PROTOCOL. PT IN ROOM WITH FAMILY, HAS NO C/O N/V OR PAIN NOTED. HOURLY ROUNDING MAINTAINED, CALL LIGHT IN REACH, WILL CONT TO MONITOR.
[2017-11-05 23:40] VITALS: BP 145/55
[2017-11-06 04:46] LABS: ABSOLUTE BASOPHILS 0.1 thou/uL (0.0-0.2); ABSOLUTE EOSINOPHILS 0.2 thou/uL (0.0-0.7); ABSOLUTE LYMPHOCYTES 3.5 thou/uL (0.8-5.3); ABSOLUTE MONOCYTES 0.8 thou/uL (0.0-1.2); ABSOLUTE NEUTROPHILS 7.2 thou/uL (1.6-8.1); BASOPHILS 0.7 %; EOSINOPHILS 1.8 %; HEMOGLOBIN 12.9 gm/dL (12.0-15.0); LYMPHOCYTES 29.9 %; MCH 25.5 pg (26.0-34.0); MCHC 30.8 g/dL (28.0-37.0); MCV 82.8 fL (80.0-100.0); MONOCYTES 6.4 %; MPV 8.6 fl. (7.2-11.1); NUCLEATED RBCS 0 /100WBC; POLYS 61.2 %; RBC 5.07 mil/uL (4.20-5.00); RDW-CV 17.2 % (10.5-14.5); WBC 11.8 thou/uL (4.0-11.0)
[2017-11-06 04:50] LABS: PLATELET COUNT* 233 thou/uL (150-400)
[2017-11-06 04:53] LABS: ALBUMIN 2.3 g/dL (3.4-5.0); CALCIUM 7.8 mg/dL (8.5-10.1); CREATININE 0.5 mg/dL (0.6-1.3); POTASSIUM 3.7 mmol/L (3.5-5.1); TOTAL BILIRUBIN 0.3 mg/dL (<0.1-1.0); TOTAL PROTEIN 5.7 g/dL (6.4-8.2)
--- NOTE | 2017-11-06 06:18 | NUR ---
ASSESSMENT COMPLETE. PT SLEPT MOST OF THE NIGHT WITHOUT ANY CONCERNS. PT HAS BEEN NPO FOR EGD WITH DR TALAMANTES TODAY. PT DENIES PAIN AND N/V. PT IS ON 2L PER NC WITH ADEQAUTE SATS. PT IS Q2 TURN FOR SKIN INTEGRITY. PT INCONT OF URINE DURING THE NIGHT. PT HAS IV FLUIDS INFUSING. PT HAS NO OTHER CONCERNS AT THIS TIME. SEE ASSESSMENT AND VITALS FOR OTHER DETAILS. CALL LIGHT WITHIN REACH, WILL CONTINUE PLAN OF CARE
[2017-11-06 08:05] VITALS: BP 138/60
[2017-11-06 11:30] VITALS: BP 138/60
[2017-11-06 12:32] VITALS: BP 127/57
--- NOTE | 2017-11-06 13:14 | NUR ---
Nutrition: Pt assessed for Antonio score 11. Admitted with vomiting. No N/V today. +BM yday. BG 145, albumin 2.3. Wt stable, 210#. On linagliptin and insulin. Pt is NPO for EGD today. No open wounds noted. No interventions today. Will await EGD and diet advancement. Low risk. ADVANCE DIET TO CHO CONTROLLED WHEN PT CLINICALLY ABLE.
[2017-11-06 15:25] VITALS: BP 122/62
--- NOTE | 2017-11-06 16:05 | NUR ---
CM INFORMED BY RN IN-CHARGE OF PATIENT HAS RETURN FROM EGD PROCEDURE, AND THAT PATIENT WILL REMAIN IN HOSPITAL FOR ANOTHER NIGHT. CM [facility]FORM THAT PATIENT WILL REMAIN IN THE HOSPITAL FOR ANOTHER NIGHT AND D/C TOMORROW. CM WILL REMAIN AVAILABLE TO ASSIST AND FOLLOW NEEDED.
--- NOTE | 2017-11-06 18:55 | NUR ---
PATIENT RESTING IN BED. PATIENT WENT FOR EGD THIS AFTERNOON WITHOUT INCIDENT. PATIENT TOLERATING DIET AT THIS TIME. PATIENT DENIES ANY NAUSEA, NO VOMITING. PATIENT HAS BEEN REPOSITIONED IN BED, FEET ELEVATED ON PILLOWS. PATIENT IS INCONTINENT OF BOWEL AND BLADDER, BARRIER CREAM APPLIED WITH CHANGES. PATIENT DENIES ANY NEEDS AT THIS TIME. CALL LIGHT WITHIN REACH. WILL CONTINUE TO MONITOR.
[2017-11-07 00:01] VITALS: BP 127/56
--- NOTE | 2017-11-07 04:15 | NUR ---
ASSESSMENT COMPLETE. PT SLEPT MOST OF THE NIGHT. PT TURNED Q2 FOR SKIN INTEGRITY. INCONT OF URINE DURING THE NIGHT. IV FLUIDS INFUSING. PT DENIES PAIN AND N/V. PT IS ON ROOM AIR WITH ADEQAUTE SATS. PT TAKES MEDS WITHOUT DIFFICULTY. SEE ASSESSMENT AND VITALS FOR OTHER DETAILS. CALL LIGHT WITHIN REACH. WILL CONTINUE PLAN OF CARE
--- NOTE | 2017-11-07 12:22 | NUR ---
ORDERS RECEIVED FOR DC TO [facility]. CALLED AND FAXED ORDERS TO [facility]. THEY WILL ACCEPT BACK AND SHE ARRANGE FOR W/C VAN AT 230PM. PT UPDATED AND PLEASED. CALL TO SISTER/[facility]VAN TO NOTIFY, IN AGREEMENT. CHART COPIED. RN HAS NUMBER TO CALL REPORT
--- NOTE | 2017-11-07 13:18 | NUR ---
NOTIFIED PT SHE IS GOING BACK TO [facility] TODAY, PT APPROVES. TRANSPORT WILL BE HERE AROUND 1430.
[2017-11-07 13:19] VITALS: BP 127/56
[2017-11-07] MEDS ORDERED: PROTONIX40 M1 PO (14:24)
[2017-11-07] MEDS ORDERED: CARAFATE 11 GM/10 M1 PO (14:25)
--- NOTE | 2017-11-07 15:19 | NUR ---
REPORT WAS CALLED EARLIER TO [facility] NURSE. DISCHARGE PACKET SENT WITH PT WHO WAS PLACED IN WHEELCHAIR BY LIFT AND TAKEN TO FACILITY BY WHEELCHAIR VAN.
--- NOTE | 2017-11-10 17:21 | CON ---
[facility] [address] [place] [address] CONSULTATION Name: JENNIFER AVILA Room: [address] IN M.R.#: [id number] Admission: 11/04/17 Attend Phys: Zohra Workman Discharge: 11/07/17 Date of : 51 Report #: [id number] THIS REPORT FOR: //name// CC: Carlos Badillo DICTATED BY: Jess Lopez [facility] DATE OF SERVICE: 11/05/2017 Please note at the time of this dictation, the patient was seen and physically examined by myself. REASON FOR CONSULTATION: Recurrent nausea and vomiting and hematemesis. HISTORY OF PRESENT ILLNESS: This is a 62-year-old female who was recently hospitalized in September of this year for her nausea and vomiting and underwent an EGD by Dr. Morgan at that time and she was noted to have a medium size hiatal hernia, mild Schatzki's ring and she had one nonbleeding duodenal ulcer and erythema of the duodenitis. She was placed on Protonix b.i.d. and to repeat her endoscopy study in 2 months. However, in reviewing her medication list coming from [facility], the patient was only taking Zantac 150 mg at bedtime and Reglan b.i.d. at that time. She states on Saturday evening, she went down to eat dinner with everyone else, but did not feel hungry. She states she felt somewhat queasy, but did not have any vomiting until after she came back, did not eat dinner, came back to her room and then she did have an episode of hematemesis, which was coffee ground emesis and she said a large amount. She did not have any more further through the night nor did she eat anything. However, the next day in the morning, she again prior to eating anything had another episode of coffee-ground emesis, therefore prompting them to send her to be evaluated here at the hospital yesterday. On arrival, her hemoglobin was 14.6. There is no hemoglobin today. I will check another one at this time. She has had no more nausea or vomiting since she has been here and she has been tolerating her liquid diet thus far. ALLERGIES: No known drug allergies. MEDICATIONS: From home, aspirin, Os-Kevin, Januvia, ketaconazole, lisinopril, Zocor, vitamin D, Eucerin cream, zinc oxide, petroleum jelly barrier cream, metoclopramide, Zantac, Claritin, nystatin, Humalog, Lantus, Zofran, hydrocortisone cream, MiraLax, vitamin C and baclofen. PAST MEDICAL HISTORY: Diabetes, MS, depression, anxiety, paraplegic, history of incontinence [place] [address] CONSULTATION Name: JENNIFER AVILA Room: [address] IN [facility].#: [id number] Admission: 11/04/17 Attend Phys: Zohra Workman Discharge: 11/07/17 Date of : 51 Report #: [id number] FAMILY HISTORY: Noncontributory. SOCIAL HISTORY: She continues to smoke a pack per day. Denies any alcohol or illegal drug use. REVIEW OF SYSTEMS: Twelve-point review of systems is essentially negative except what is mentioned in the HPI. PHYSICAL EXAMINATION: VITAL SIGNS: Temperature 36.8, pulse 95, respirations 17, blood pressure 114/64. HEART: Regular rate and rhythm. CHEST: Lungs are clear. ABDOMEN: Soft, positive bowel sounds in all 4 quadrants with no masses or tenderness noted. Abdominal x-ray suggestive of large amount of stool throughout the colon and a large hiatal hernia. IMPRESSION: 1. Nausea and vomiting, improved. 2. Hematemesis. 3. History of duodenal ulcer from 09/19/2017 EGD. 4. History of multiple sclerosis and paraplegic. PLAN: 1. EGD tomorrow with Dr. Morgan. 2. Protonix 40 mg IV b.i.d. continue. 3. Recheck a CBC in the a.m. 4. Further recommendations to be made once the procedure has been performed. Thank you for allowing us to participate in this patient's care. Please do not hesitate to call with any questions in regard to this consult. ADDENDUM REFERRING PHYSICIAN: Abhinav Badillo MD I have seen and examined her and agree with plan that has been outlined by our nurse practitioner, Jess Lopez. The patient is an unfortunate 62-year-old white female with underlying multiple sclerosis and paraplegia who was admitted to the hospital with complaints of abdominal pain associated with nausea, vomiting and hematemesis. She underwent upper endoscopy about a month and a half ago by my partner, which revealed a nonbleeding duodenal ulcer, but a large hiatal hernia with majority of her [facility] [address] [place] [address] CONSULTATION Name: JENNIFER AVILA Room: [address] IN [place].#: [id number] Admission: 11/04/17 Attend Phys: Zohra Workman Discharge: 11/07/17 Date of : 51 Report #: [id number] stomach up in her chest. This was confirmed by multiple CT scans. This suggests she may have a paraesophageal hernia versus just a routine hiatal hernia. In any event, because of her issues with recurrent nausea, vomiting, hematemesis and the fact she is only on some Zantac at this time for documented peptic ulcer disease, we will proceed with upper endoscopy tomorrow and make further recommendations thereafter. Consideration for an upper GI series may be in order to better delineate what type of hernia she has as this may be a paraesophageal hernia and as such, this may require surgical intervention for the same. This could also be a source of chronic anemia, recurrent nausea, vomiting, abdominal pain, hematemesis, etc. We will proceed with an upper endoscopy tomorrow and make further recommendations thereafter. <ELECTRONICALLY SIGNED> By: Félix Parker DO 11/10/17 1721 1813 [id number] Parker DO /nt
--- NOTE | 2017-11-16 07:10 | PATH ---
[address] [address] PATHOLOGY RPT PROCEDURE Name: JENNIFER AVILA Room: [address] IN .R.#: [id number] Admission: 11/04/17 Date of : 51 Discharge: 11/07/17 Report #: [id number] Path Case #: [id number] [facility] Accession Number: [id number] . 01 Material submitted: . ESOPHAGEAL BIOPSIES . 01 Clinical history: . Severe esophagitis . 02 Diagnosis: Esophageal biopsies: - Acute inflammatory/necrotic debris, without viable stromal or epithelial tissues, negative for granulomas and viral inclusions. (GABRIELLE:pit 11/11/2017) QTP/11/11/2017 . 02 Electronically signed: . Jose Hodges MD, Pathologist NPI- [id number] . 01 Gross description: . Received in formalin labeled "Jennifer Dominick, esophageal biopsies" are 2 butcher soft tissue fragments each averaging 0.1 cm which are entirely submitted as A1. . (DRAKE; 11/08/2017) JBR/JBR . 02 Pathologist provided ICD-10: K22.9 . 02 CPT . 894064 Performed at: [address], [place] [id number] MD Doron Schmidt MD Phone: [phone] Performed at: 02 [facility] [address], [place], [place] [id number] MD Jose Hodges MD Phone: [phone]
== END 2017-11-07 15:21 | DRG 380 ==
LOC: M.ERS 06:37 → M.3W 09:17 → M.TBA-ER 09:17 → M.3W 11:38
PROVIDERS: Emergency Medicine Emergency Medical Services; Internal Medicine Gastroenterology; Nurse Practitioner Adult Health; ADMIT Internal Medicine
PROC: 0DB58ZX Excision of Esophagus, Via Natural or Artificial Opening Endoscopic, Diagnostic (ICD-10-PCS; principal; 2017-11-06)
DX: K22.11 Ulcer of esophagus with bleeding (principal); E43 Unspecified severe protein-calorie malnutrition; J96.00 Acute respiratory failure, unspecified whether with hypoxia or hypercapnia; G82.20 Paraplegia, unspecified; E11.9 Type 2 diabetes mellitus without complications; G35 Multiple sclerosis; I10 Essential (primary) hypertension; F32.9 Major depressive disorder, single episode, unspecified; F41.9 Anxiety disorder, unspecified; F17.210 Nicotine dependence, cigarettes, uncomplicated; K44.9 Diaphragmatic hernia without obstruction or gangrene; K21.0 Gastro-esophageal reflux disease with esophagitis; Z79.82 Long term (current) use of aspirin; Z79.899 Other long term (current) drug therapy; Z79.4 Long term (current) use of insulin; Z87.11 Personal history of peptic ulcer disease; Z68.36 Body mass index [BMI] 36.0-36.9, adult

== ENCOUNTER 2017-12-09 00:37 | Observation (INO) | payer MEDICARE, MEDICAID ==
[~2017-12-09] VITALS: Ht 162.6 cm; Wt 93.4 kg
[2017-12-09] VITALS (7 sets, daily range): BP systolic 125–161; BP diastolic 45–92
[~2017-12-09 00:37] MED LIST changes: +CARAFATE 11 GM/10 M1 PO
[2017-12-09 01:03] LABS: URINE BILIRUBIN NEGATIVE (Negative); URINE BLOOD 3+ (Negative); URINE COLOR YELLOW; URINE GLUCOSE-RANDOM 1+ (Negative); URINE KETONES TRACE (Negative); URINE PROTEIN 2+ (Negative); URINE SPECIFIC GRAVITY >= 1.030 (1.005-1.030); URINE UROBILINOGEN 0.2 E.U./dl (0.2-1.0)
[2017-12-09 01:04] LABS: URINE CLARITY CLOUDY; URINE LEUKOCYTES-REFLEX 3+ (Negative); URINE NITRITE-REFLEX POSITIVE (Negative)
[2017-12-09 01:07] LABS: SQUAMOUS 0-3 Few /LPF (0-3); TRANSITIONAL EPITHEL CELL 0-3 Few /LPF (None Seen); URINE WBC-REFLEX >25 Many /HPF (0-5); WBC CLUMPS Moderate (None Seen)
[2017-12-09 01:08] LABS: BACTERIA-REFLEX >30 Many /HPF (None Seen); CASTS None Seen /LPF (None Seen); CRYSTALS None Seen /LPF (None Seen); MUCUS 4-6 Moderate strn/LPF (None Seen); URINE RBC >20 Many /HPF (0-2)
[2017-12-09 01:31] LABS: ABSOLUTE BASOPHILS 0.1 thou/uL (0.0-0.2); ABSOLUTE EOSINOPHILS 0.1 thou/uL (0.0-0.7); ABSOLUTE LYMPHOCYTES 3.2 thou/uL (0.8-5.3); ABSOLUTE MONOCYTES 0.6 thou/uL (0.0-1.2); ABSOLUTE NEUTROPHILS 9.8 thou/uL (1.6-8.1); BASOPHILS 0.6 %; EOSINOPHILS 0.7 %; HEMATOCRIT 43.2 % (37.0-47.0); HEMOGLOBIN 13.7 gm/dL (12.0-15.0); LYMPHOCYTES 23.3 %; MCH 25.1 pg (26.0-34.0); MCHC 31.7 g/dL (28.0-37.0); MONOCYTES 4.5 %; MPV 9.1 fl. (7.2-11.1); NUCLEATED RBCS 0 /100WBC; PLATELET COUNT* 302 thou/uL (150-400); POLYS 70.9 %; RBC 5.46 mil/uL (4.20-5.00); RDW-CV 16.4 % (10.5-14.5); WBC 13.9 thou/uL (4.0-11.0)
[2017-12-09 01:49] LABS: ANION GAP 4 mmol/L (7-16); BUN 10 mg/dL (7-18); CALCIUM 8.5 mg/dL (8.5-10.1); CHLORIDE 103 mmol/L (98-107); CO2 30 mmol/L (21-32); CREATININE 0.7 mg/dL (0.6-1.3); GLUCOSE 250 mg/dL (70-99); POTASSIUM 3.8 mmol/L (3.5-5.1); SODIUM 137 mmol/L (136-145)
[2017-12-09 01:54] LABS: ALBUMIN 2.8 g/dL (3.4-5.0); ALKALINE PHOSPHATASE 100 U/L (46-116); LIPASE 469 U/L (73-393); NT-PRO BRAIN NAT PEPTIDE < 5 pg/mL (<300); TOTAL BILIRUBIN 0.3 mg/dL (<0.1-1.0); TOTAL PROTEIN 6.8 g/dL (6.4-8.2); TROPONIN-I LEVEL 0.17 ng/mL (<0.06)
[2017-12-09 02:07] LABS: SGOT 16 U/L (15-37); SGPT 34 U/L (30-65)
--- NOTE | 2017-12-09 15:07 | EKG ---
[place] [address] ELECTROCARDIOGRAM REPORT Name: JENNIFER AVILA Room: [address] ADM IN M.R.#: [id number] Admission: 12/09/17 Attend Phys: Joyce Tavares MD Discharge: Date of : 51 Report #: [id number] THIS REPORT FOR: //name// [facility] ED Test Date: 2017-12-09 Test Time: 01:26:10 Pat Name: JENNIFER AVILA Department: Room: [facility] Gender: F General Medical Practitioner: [facility] : 1955 Requested By: Inna Lozano Order Number: [id number] MD: Soctty Rodriguez Measurements Intervals [place] Rate: 104 P: 64 ND: 134 QRS: 30 QRSD: 85 T: 38 QT: 347 QTc: 457 Interpretive Statements Sinus tachycardia Minor nonspecific st-t changes Electronically Signed On 12-09-2017 15:06:49 CDT by Scotty Rodriguez [email or web address] <ELECTRONICALLY SIGNED> By: Scotty Rodriguez MD, [facility] 12/09/17 1506 0126 0126 Scotty Rodriguez MD, FACC /EPI
[2017-12-10] VITALS: BP 11/66; BP 111/66
[2017-12-10 04:00] VITALS: BP 132/72
[2017-12-10 05:17] LABS: HEMATOCRIT 40.3 % (37.0-47.0); HEMOGLOBIN 12.7 gm/dL (12.0-15.0); MCH 25.2 pg (26.0-34.0); MCHC 31.5 g/dL (28.0-37.0); MCV 80.2 fL (80.0-100.0); RBC 5.02 mil/uL (4.20-5.00); RDW-CV 15.9 % (10.5-14.5); WBC 9.7 thou/uL (4.0-11.0)
[2017-12-10 05:36] LABS: CALCIUM 8.1 mg/dL (8.5-10.1); CREATININE 0.5 mg/dL (0.6-1.3); MAGNESIUM 1.9 mg/dL (1.8-2.4); PHOSPHORUS* 3.9 mg/dL (2.5-4.9); POTASSIUM 3.9 mmol/L (3.5-5.1)
[2017-12-10 08:00] VITALS: BP 109/76
[2017-12-10 10:59] VITALS: BP 109/76
[2017-12-10 11:38] VITALS: BP 131/63
--- NOTE | 2017-12-11 12:33 | CON ---
[address] [address] CONSULTATION Name: JENNIFER AVILA Room: [address] [place]#: [id number] Admission: 12/09/17 Attend Phys: Joyce Tavares MD Discharge: 12/10/17 Date of : 51 Report #: [id number] THIS REPORT FOR: //name// CC: Joyce Garcia DATE OF SERVICE: 12/09/2017 CARDIOLOGY CONSULTATION LOCATION: The patient in [facility]. PATIENT OF: Dr. Hardin. HISTORY OF PRESENT ILLNESS: The patient is a pleasant 62-year-old detention resident with underlying multiple sclerosis with paraplegia. She presented with intractable nausea and vomiting, with a prominent hiatal hernia and gastric outlet obstruction. The patient had no chest pain, but did have significant abdominal discomfort as well as nausea and vomiting. She had a minimal increase in troponin I of 0.17 without EKG changes suggesting acute ischemia. On evaluation in the hospital, she again denies chest discomfort this morning and denies any prior to this assessment. PAST MEDICAL HISTORY: Remarkable for diabetes, multiple sclerosis and gastroparesis. SOCIAL HISTORY: She is a detention resident. MEDICATIONS: Have included insulin, aspirin, lisinopril, simvastatin and metoclopramide. PHYSICAL EXAMINATION: GENERAL: Reveals an overweight female, in no acute distress. VITAL SIGNS: Blood pressure is 135/60, pulse rate is 84 and respirations are 16 per minute. CHEST EXAMINATION: Clear anteriorly. CARDIAC EXAMINATION: Reveals a regular rhythm, with a soft systolic murmur. ABDOMEN: Distended, but nontender. EXTREMITIES: Satisfactorily perfused. DIAGNOSTIC DATA: Electrocardiogram demonstrates sinus [place] [address] CONSULTATION Name: JENNIFER AVILA Room: [address] [place]#: [id number] Admission: 12/09/17 Attend Phys: Joyce Tavares MD Discharge: 12/10/17 Date of : 51 Report #: [id number] inferior Q-waves and minor nonspecific ST-T alterations. IMPRESSION: 1. Multiple sclerosis. 2. Gastroparesis with outlet obstruction and protracted nausea and vomiting. 3. Minimal increase in troponin I, without concomitant electrocardiographic changes or chest pain. 4. Exogenous obesity. 5. History of pancreatitis. RECOMMENDATIONS: 1. Agree with Dr. Hardin with a focus on the recent protracted nausea and vomiting and gastroparesis. 2. In this overall clinical context, I would not be more aggressive in pursuit of this minimal increase in troponin I. 3. Agree with continuation of low-dose aspirin. Thank you for allowing us to see the patient. <ELECTRONICALLY SIGNED> By: Scotty Rodriguez MD, [facility] 12/11/17 1233 0922 1339John Negin Rodriguez MD, FACC /nt
== END 2017-12-10 12:00 ==
LOC: M.ERS 00:37 → M.2W 02:41 → M.TBA-ER 02:41 → M.2W 02:41
PROVIDERS: Emergency Medicine; ADMIT Internal Medicine
DX: K44.0 Diaphragmatic hernia with obstruction, without gangrene (principal); N39.0 Urinary tract infection, site not specified; E43 Unspecified severe protein-calorie malnutrition; K31.1 Adult hypertrophic pyloric stenosis; E11.43 Type 2 diabetes mellitus with diabetic autonomic (poly)neuropathy; K31.84 Gastroparesis; G82.20 Paraplegia, unspecified; I10 Essential (primary) hypertension; G35 Multiple sclerosis; F31.9 Bipolar disorder, unspecified; N31.2 Flaccid neuropathic bladder, not elsewhere classified; F41.9 Anxiety disorder, unspecified; F17.210 Nicotine dependence, cigarettes, uncomplicated; R53.81 Other malaise; R11.2 Nausea with vomiting, unspecified; R31.9 Hematuria, unspecified; Z79.4 Long term (current) use of insulin; Z79.899 Other long term (current) drug therapy

== ENCOUNTER 2018-02-09 18:23 | Inpatient (IN) | payer MEDICARE, MEDICAID ==
[~2018-02-09] VITALS: Ht 162.6 cm; Wt 85.0 kg
[2018-02-09 18:30] VITALS: BP 139/86
[2018-02-09] MEDS ORDERED: MUCINEX600 MG PO (18:34)
[2018-02-09] MEDS ORDERED: IPRAT-ALBUT 0.5-3 ML INH (18:35)
[2018-02-09 18:59] LABS: HEMATOCRIT 44.9 % (37.0-47.0); HEMOGLOBIN 13.8 gm/dL (12.0-15.0); MCH 23.3 pg (26.0-34.0); MCHC 30.8 g/dL (28.0-37.0); MCV 75.5 fL (80.0-100.0); NUCLEATED RBCS 0 /100WBC; PLATELET COUNT* 366 thou/uL (150-400); RBC 5.95 mil/uL (4.20-5.00); RDW-CV 16.7 % (10.5-14.5); WBC 29.8 thou/uL (4.0-11.0)
[2018-02-09 19:06] LABS: ANION GAP 8 mmol/L (7-16); BUN 12 mg/dL (7-18); CALCIUM 9.4 mg/dL (8.5-10.1); CHLORIDE 98 mmol/L (98-107); CO2 27 mmol/L (21-32); CREATININE 0.7 mg/dL (0.6-1.3); GLUCOSE 308 mg/dL (70-99); POTASSIUM 4.2 mmol/L (3.5-5.1); SODIUM 133 mmol/L (136-145)
[2018-02-09 19:14] LABS: ALKALINE PHOSPHATASE 141 U/L (46-116); SGOT 60 U/L (15-37); SGPT 79 U/L (30-65); TOTAL BILIRUBIN 0.6 mg/dL (<0.1-1.0); TOTAL PROTEIN 7.3 g/dL (6.4-8.2); TROPONIN-I LEVEL <0.06 ng/mL (<0.06)
[2018-02-09 19:17] LABS: ABSOLUTE LYMPHOCYTES 2.1 thou/uL (0.8-5.3); ABSOLUTE MONOCYTES 1.2 thou/uL (0.0-1.2); ABSOLUTE NEUTROPHILS 26.5 thou/uL (1.6-8.1); ATYPICAL LYMPHS 2 %
[2018-02-09 19:18] LABS: ANISOCYTOSIS Occasional; HYPOCHROMASIA Occasional; PLATELET ESTIMATE ADEQUATE
[2018-02-09 19:19] LABS: MICROCYTES Occasional
[2018-02-09 19:55] LABS: URINE BILIRUBIN NEGATIVE (Negative); URINE BLOOD NEGATIVE (Negative); URINE CLARITY CLEAR; URINE COLOR YELLOW; URINE GLUCOSE-RANDOM 3+ (Negative); URINE KETONES 2+ (Negative); URINE LEUKOCYTES-REFLEX NEGATIVE (Negative); URINE NITRITE-REFLEX NEGATIVE (Negative); URINE PROTEIN NEGATIVE (Negative); URINE SPECIFIC GRAVITY 1.025 (1.005-1.030); URINE UROBILINOGEN 0.2 E.U./dl (0.2-1.0)
[2018-02-09 20:01] LABS: AMP/METHAMP Negative (Negative); BARBITURATES Negative (Negative); BENZODIAZEPINES Negative (Negative); COCAINE Negative (Negative); METHADONE Negative (Negative); OPIATES Negative (Negative); PCP Negative (Negative); THC Negative (Negative)
[2018-02-09 21:28] VITALS: BP 154/75
[2018-02-09 21:31] LABS: INFLUENZA A ANTIGEN None Detected (None Detect)
[2018-02-09 21:55] VITALS: BP 147/74
[2018-02-09 22:47] LABS: BE -2.5 mmol/L (-2 to +3); HCO3 21.1 mmol/L (22.0-26.0); PCO2 32.9 mmHg (35.0-45.0); pH 7.425 (7.340-7.450)
[2018-02-10] VITALS: BP 153/81
[2018-02-10 04:00] VITALS: BP 143/68
[2018-02-10 05:34] LABS: PO2 56.8 mmHg (75.0-100.0)
[2018-02-10 08:20] VITALS: BP 144/72
[2018-02-10 08:20] LABS: ABSOLUTE BASOPHILS 0.1 thou/uL (0.0-0.2); ABSOLUTE LYMPHOCYTES 2.1 thou/uL (0.8-5.3); ABSOLUTE NEUTROPHILS 29.5 thou/uL (1.6-8.1); BASOPHILS 0.4 %; HEMATOCRIT 39.6 % (37.0-47.0); HEMOGLOBIN 12.1 gm/dL (12.0-15.0); LYMPHOCYTES 6.4 %; MCH 22.9 pg (26.0-34.0); MCHC 30.6 g/dL (28.0-37.0); MCV 74.9 fL (80.0-100.0); MONOCYTES 3.2 %; NUCLEATED RBCS 0 /100WBC; PLATELET COUNT* 299 thou/uL (150-400); RBC 5.28 mil/uL (4.20-5.00); RDW-CV 16.8 % (10.5-14.5); WBC 32.8 thou/uL (4.0-11.0)
[2018-02-10 08:48] LABS: CALCIUM 8.1 mg/dL (8.5-10.1); CREATININE 0.5 mg/dL (0.6-1.3); MAGNESIUM 1.6 mg/dL (1.8-2.4); POTASSIUM 3.8 mmol/L (3.5-5.1)
[2018-02-10 13:16] VITALS: BP 147/68
[2018-02-10 16:00] VITALS: BP 136/77
--- NOTE | 2018-02-10 17:51 | EKG ---
[place] [address] ELECTROCARDIOGRAM REPORT Name: JENNIFER AVILA Room: [place] [address] ADM IN .R.#: [id number] Admission: 02/09/18 Attend Phys: Alireza Hardin MD Discharge: Date of : 51 Report #: [id number] THIS REPORT FOR: //name// [facility] ED Test Date: 2018-02-09 Test Time: 18:36:09 Pat Name: JENNIFER AVILA Department: Room: [facility] Gender: F Piano Instructor: Idalia ESCOBEDO : 1955 Requested By: Gracia Pearce Order Number: [id number] MD: Stephen Mckeon Measurements Intervals [place] Rate: 116 P: 80 SD: 133 QRS: 39 QRSD: 88 T: 25 QT: 315 QTc: 438 Interpretive Statements Sinus tachycardia Left atrial enlargement Compared to ECG 12/09/2017 01:26:10 Atrial abnormality now present ST (T wave) deviation no longer present Electronically Signed On 02-10-2018 17:51:09 CDT by Stephen Mckeon [email or web address] <ELECTRONICALLY SIGNED> By: Stephen Mckeon MD, FACC 02/10/18 1751 1836 1836 Stephen Mckeon MD, FACC /EPI
[2018-02-10 19:45] VITALS: BP 133/77
[2018-02-11] VITALS (7 sets, daily range): BP systolic 122–162; BP diastolic 55–83
[2018-02-11 05:01] LABS: BE -1.4 mmol/L (-2 to +3); HCO3 24.8 mmol/L (22.0-26.0); PCO2 47.7 mmHg (35.0-45.0); PO2 70.9 mmHg (75.0-100.0); pH 7.334 (7.340-7.450)
[2018-02-12] VITALS (8 sets, daily range): BP systolic 130–195; BP diastolic 68–96
[2018-02-12 04:55] LABS: HEMATOCRIT 37.2 % (37.0-47.0); HEMOGLOBIN 11.5 gm/dL (12.0-15.0); MCH 23.1 pg (26.0-34.0); MCHC 30.9 g/dL (28.0-37.0); MPV 9.2 fl. (7.2-11.1); RBC 4.96 mil/uL (4.20-5.00); WBC 23.1 thou/uL (4.0-11.0)
[2018-02-12 05:13] LABS: CALCIUM 7.6 mg/dL (8.5-10.1); CREATININE 0.5 mg/dL (0.6-1.3); MAGNESIUM 2.1 mg/dL (1.8-2.4); POTASSIUM 5.4 mmol/L (3.5-5.1)
[2018-02-12 11:14] LABS: BE 3.9 mmol/L (-2 to +3); HCO3 30.5 mmol/L (22.0-26.0); pH 7.366 (7.340-7.450)
[2018-02-12 11:15] LABS: PCO2 54.5 mmHg (35.0-45.0); PO2 53.6 mmHg (75.0-100.0)
[2018-02-12 15:02] LABS: HCO3 30.9 mmol/L (22.0-26.0); PCO2 50.8 mmHg (35.0-45.0); PO2 88.2 mmHg (75.0-100.0); pH 7.402 (7.340-7.450)
--- NOTE | 2018-02-12 17:19 | 2DMMODE ---
[place] [address] 2 D/M-MODE ECHOCARDIOGRAM Name: JENNIFER AVILA Room: [address] IN [facility]#: [id number] Admission: 02/09/18 Attend Phys: Alireza Hardin, Discharge: Date of : 51 Date of Service: 02/12/18 1719 Report #: [id number] THIS REPORT FOR: //name// APPROVED REPORT Study performed: 02/12/2018 15:46:15 EXAM: Comprehensive 2D, Doppler, and color-flow Echocardiogram Patient Location: In-Patient Room #: [facility] Status: routine BSA: 2.00 HR: 105 bpm BP: 131/70 mmHg Rhythm: NSR Other Information Study Quality: Good Indications Dyspnea 2D Dimensions IVSd: 10.39 (7-11mm) LVOT Diam: 20.33 (18-24mm) LVDd: 43.17 mm PWd: 10.21 (7-11mm) Ascending Ao: 30.46 (22-36mm) LVDs: 21.00 (25-40mm) Aortic Root: 27.48 mm Volumes Left Atrial Volume (Systole) LA ESV Index: 15.50 mL/m2 Aortic Valve AoV Peak Fili.: 1.23 m/s AO Peak Gr.: 6.06 mmHg LVOT Max P.95 mmHg AO Mean Gr.: 3.36 mmHg LVOT Mean P.36 mmHg LVOT Max V: 0.86 m/s AO V2 VTI: 17.89 cm LVOT Mean V: 0.53 m/s GENI (VTI): 2.31 cm2 LVOT V1 VTI: 12.72 cm Mitral Valve E/A Ratio: 0.86 MV Decel. Time: 178.50 ms MV E Max Fili.: 0.68 m/[place] [address] 2 D/M-MODE ECHOCARDIOGRAM Name: JENNIFER AVILA Magdaleno Room: [address] IN ..#: [id number] Admission: 02/09/18 Attend Phys: Alireza Hardin, Discharge: Date of : 51 Date of Service: 02/12/18 1719 Report #: [id number] MV PHT: 51.76 ms MVA (PHT): 4.25 cm2 TDI E/Lateral E': 5.67 E/Medial E': 6.80 Medial E' Fili.: 0.10 m/s Lateral E' Fili.: 0.12 m/s Pulmonary Valve PV Peak Fili.: 1.03 m/s PV Peak Gr.: 4.22 mmHg Tricuspid Valve RAP Estimate: 5.00 mmHg TR Peak Gr.: 27.74 mmHg RVSP: 33.00 mmHg PA Pressure: 33.00 mmHg Left Ventricle The left ventricle is normal size. There is normal LV segmental wall motion. There is normal left ventricular wall thickness. Left ventricular systolic function is normal. LVEF is 55-60%. Grade I - abnormal relaxation pattern. Right Ventricle The right ventricle is normal size. The right ventricular systolic function is normal. Atria The left atrium size is normal. The right atrium size is normal. Aortic Valve The aortic valve is normal in structure. No aortic regurgitation is present. There is no aortic valvular stenosis. Mitral Valve The mitral valve is normal in structure. There is no mitral valve regurgitation noted. No evidence of mitral valve stenosis. Tricuspid Valve The tricuspid valve is normal in structure. Mild tricuspid regurgitation. Mild pulmonary hypertension. Pulmonic Valve The pulmonary valve is normal in structure. There is no pulmonic [place] [address] 2 D/M-MODE ECHOCARDIOGRAM Name: JENNIFER AVILA Room: [address] IN [facility]#: [id number] Admission: 02/09/18 Attend Phys: Alireza Hardin, Discharge: Date of : 51 Date of Service: 02/12/18 1719 Report #: [id number] Great Vessels The aortic root is normal in size. IVC is normal in size and collapses >50% with inspiration. Pericardium There is no pericardial effusion. <Conclusion> The left ventricle is normal size. There is normal left ventricular wall thickness. Left ventricular systolic function is normal. LVEF is 55-60%. Grade I - abnormal relaxation pattern. Mild tricuspid regurgitation. Mild pulmonary hypertension. IVC is normal in size and collapses >50% with inspiration. <ELECTRONICALLY SIGNED> By: Stephen Mckeon MD, FACC 02/12/181718 18 18 Stephen Mckeon MD, FACC /INF
[2018-02-13] VITALS (19 sets, daily range): BP systolic 108–149; BP diastolic 54–82
[2018-02-13 03:47] LABS: HEMATOCRIT 35.4 % (37.0-47.0); HEMOGLOBIN 10.7 gm/dL (12.0-15.0); MCH 22.7 pg (26.0-34.0); MCHC 30.2 g/dL (28.0-37.0); MPV 8.6 fl. (7.2-11.1); RBC 4.71 mil/uL (4.20-5.00); RDW-CV 16.9 % (10.5-14.5); WBC 14.4 thou/uL (4.0-11.0)
[2018-02-13 04:02] LABS: CALCIUM 8.4 mg/dL (8.5-10.1); CREATININE 0.6 mg/dL (0.6-1.3); MAGNESIUM 2.1 mg/dL (1.8-2.4); POTASSIUM 4.7 mmol/L (3.5-5.1)
[2018-02-13 09:56] LABS: HCO3 30.7 mmol/L (22.0-26.0); PCO2 45.3 mmHg (35.0-45.0); pH 7.449 (7.340-7.450)
--- NOTE | 2018-02-13 10:19 | CON ---
[facility] [address] [place] [address] CONSULTATION Name: JENNIFER AVILA Room: [address] IN M.R.#: [id number] Admission: 02/09/18 Attend Phys: Alireza Hardin MD Discharge: Date of : 51 Report #: [id number] THIS REPORT FOR: //name// CC: Alireza Garcia DATE OF SERVICE: 02/12/2018 REQUESTING PHYSICIAN: Alireza Hardin M.D. REASON FOR CONSULTATION: Acute respiratory failure, influenza. DISCUSSION: The patient is a pleasant 62-year-old woman who has a history of multiple sclerosis. She is essentially paraplegic related to this. She is unable to ambulate. She does live in long-term care. She came to the Emergency Department on the and was evaluated. She had several day history of weakness and dizziness. Testing done in the ED revealed she was positive for influenza B. She also had a leukocytosis. Initial chest x-ray was negative for acute findings. She did have a CT angiogram done of her chest, did not appear that she had pulmonary embolism. She was also noted to have an extremely large hiatal hernia, which extended up into the right lower chest to mediastinum. She has been on supplemental oxygen since admission. However, in the last 24 hours, her O2 needs have increased. Unable to maintain her O2 saturations on the high flow nasal cannula. She was on BiPAP for a period of time during the night. However, she was quite uncomfortable with that, came off, was on high flow. A blood gas was done this morning. Given that she was having more trouble breathing, she was then placed back on BiPAP as soon as a blood gas was drawn. She is a former smoker, though with the BiPAP on, I am having trouble understanding as to exactly how long ago she quit. She denies ever being told that she had asthma or emphysema. She may still be smoking some, perhaps a half a pack per day. PAST MEDICAL HISTORY: She has a history of MS as noted. Also, issues with gastroparesis, has a very large hiatal hernia. History of diabetes mellitus, hypertension, issues with incontinence in the past as well. MEDICATIONS: At the time of admission here, her medications were insulin, baclofen, baby aspirin, calcium with vitamin D, Januvia, lisinopril, simvastatin, vitamin D, metoclopramide, multivitamins, loratadine, Carafate, Mucinex, DuoNeb p.r.n. SOCIAL HISTORY: Lives in a shelter. History of tobacco abuse. I believe her [place] [address] CONSULTATION Name: JENNIFER AVILA Room: [address] IN M.R.#: [id number] Admission: 02/09/18 Attend Phys: Alireza Hardin MD Discharge: Date of : 51 Report #: [id number] FAMILY HISTORY: Positive for COPD. REVIEW OF SYSTEMS: Difficult to obtain from the patient given her respiratory status and being on the BiPAP. She does admit to being short of breath. Has had some cough, has had difficulty trying to clear secretions. Currently, denies any nausea. Denies any pain in her chest. PHYSICAL EXAMINATION: GENERAL APPEARANCE: An obese woman. Currently, is on the BiPAP. RT is making adjustments to the mask as well as the BiPAP. Heart rate is 124 beats per minute. She is mildly tachypneic. However, she is not in marked respiratory distress. HEENT: Head appears normocephalic. Mucous membranes look dry. NECK: Large, but supple without any definite adenopathy noted. HEART: Tachycardic, but appears regular. LUNGS: Show breath sounds to be diminished. They are coarse. She has some rhonchi and expiratory wheezes heard throughout. Excursion is equal. There is no subcutaneous emphysema noted. ABDOMEN: Very obese, but soft. Does not appear to have any hepatosplenomegaly noted. EXTREMITIES: She has no clubbing. Lower extremities do reveal trace edema. No calf tenderness. No obvious cords are noted. NEUROLOGIC: Does appear alert and oriented. Again, however, it is difficult to converse with her given her respiratory status and the BiPAP. LABORATORY AND X-RAY FINDINGS: A portable chest film requested for this morning is pending. Arterial blood gases done just prior to going back on the BiPAP, she had a pH of 7.37, a pCO2 of 55, pO2 of 54, bicarbonate of 31, a saturation of 87%. She is satting in the 90s on the BiPAP. Her influenza B was positive as noted. White blood cell count this morning 23,100, down from a peak of 32,800. Hemoglobin 11.5, hematocrit of 37.2, platelets are normal. On her chemistry, her sodium is 132, potassium 5.4, BUN of 14, creatinine of 0.5. Blood cultures on admission are negative. Currently, her medications are DuoNeb every 6 hours while awake, methylprednisolone, Lovenox for DVT prophylaxis, atorvastatin, insulin, Carafate, lisinopril, mag phos, multivitamins, loratadine, nystatin topically, Protonix, guaifenesin, melatonin at bedtime p.r.n., ketaconazole, Tamiflu for 10 doses, baclofen, topical hydrocortisone. Noted, chest x-ray from today is pending. CT angiogram done of her chest on admission was negative for PE. Has some minimal scarring noted. She has an extremely large hiatal hernia. No confluent infiltrates are noted. IMPRESSION: 1. Acute respiratory failure. Becoming increasingly hypoxic [place] [address] CONSULTATION Name: JENNIFER AVILA Room: [address] IN [facility].#: [id number] Admission: 02/09/18 Attend Phys: Alireza Hardin MD Discharge: Date of : 51 Report #: [id number] 2. Influenza B. 3. History of tobacco abuse. Exact details not clear, but I suspect she probably has some underlying obstructive lung disease. 4. Leukocytosis, rule out secondary bacterial infection. 5. Obesity. 6. History of multiple sclerosis. Essentially bedbound/wheelchair bound. RECOMMENDATIONS: 1. We will cover with antibiotics in the event she has a secondary bacterial infection. 2. Continue BiPAP. We will follow up blood gases this afternoon. 3. May require intubation. It appears at this point that she is a full code. 4. Increase neb treatments to every 4 hours around the clock. 5. We will also obtain echocardiogram given her respiratory distress. 6. Guarded prognosis. If she is intubated, it is not clear how easily she can be weaned from the ventilator given her neuromuscular weakness from her multiple sclerosis. <ELECTRONICALLY SIGNED> By: Yoon Hargrove MD 02/13/18 1019 1216 1943Vivian Ugalde MD /nt
[2018-02-14] VITALS (16 sets, daily range): BP systolic 99–144; BP diastolic 50–82
[2018-02-14 04:37] LABS: HEMATOCRIT 31.8 % (37.0-47.0); HEMOGLOBIN 9.6 gm/dL (12.0-15.0); MCH 22.8 pg (26.0-34.0); MCHC 30.2 g/dL (28.0-37.0); MCV 75.3 fL (80.0-100.0); MPV 8.9 fl. (7.2-11.1); RBC 4.21 mil/uL (4.20-5.00); WBC 12.6 thou/uL (4.0-11.0)
[2018-02-14 04:59] LABS: CALCIUM 8.3 mg/dL (8.5-10.1); CREATININE 0.7 mg/dL (0.6-1.3); MAGNESIUM 2.1 mg/dL (1.8-2.4); POTASSIUM 4.6 mmol/L (3.5-5.1)
[2018-02-15 01:10] VITALS: BP 119/69
[2018-02-15 04:02] LABS: HEMOGLOBIN 9.3 gm/dL (12.0-15.0); MCH 23.1 pg (26.0-34.0); MCHC 30.8 g/dL (28.0-37.0); MCV 75.1 fL (80.0-100.0); MPV 8.7 fl. (7.2-11.1); RDW-CV 16.9 % (10.5-14.5); WBC 14.4 thou/uL (4.0-11.0)
[2018-02-15 04:12] LABS: CALCIUM 8.1 mg/dL (8.5-10.1); CREATININE 0.7 mg/dL (0.6-1.3); POTASSIUM 4.5 mmol/L (3.5-5.1)
[2018-02-15 04:48] LABS: BE 0.1 mmol/L (-2 to +3); HCO3 23.9 mmol/L (22.0-26.0); PCO2 35.4 mmHg (35.0-45.0); PO2 74.8 mmHg (75.0-100.0); pH 7.448 (7.340-7.450)
[2018-02-15 05:01] VITALS: BP 153/73
--- NOTE | 2018-02-15 17:15 | CON ---
[address] [address] CONSULTATION Name: JENNIFER AVILA Room: [address] IN M.R.#: [id number] Admission: 02/09/18 Attend Phys: Alireza Hardin MD Discharge: Date of : 51 Report #: [id number] THIS REPORT FOR: //name// CC: Alireza Garcia DATE OF SERVICE: 02/10/2018 HISTORY OF PRESENT ILLNESS: This is a 62-year-old female patient who was evaluated by me for the possibility of multiple sclerosis. The patient's history is not completely clear. She indicated that her symptoms started several decades ago. She does not know the exact timing. She saw a neurologist, Dr. Lawrence. He diagnosed her with primary progressive MS. Therefore, she was never started on any disease modifying treatment. 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 She does move her upper extremities. She was feeling weaker in the left upper extremity and that is one of the reasons she came in. At one time, she was admitted with intractable nausea, vomiting. She has a history of gastroparesis. She had numerous admissions here and part of those records was reviewed. I had seen this patient on 09/24/2017. She also has a history of hypertension, depression, anxiety, venous insufficiency. At that time, I had talked to her about new medications for primary progressive MS. She thought about it, but she decided not to pursue with that treatment because of its potential side effect. She did have an MRI done during her last admission, which demonstrated findings consistent with advanced multiple sclerosis. She has a high white count during this admission and it is 32.8. She does have a history of diabetes. In the past she also has a history of intractable nausea. She has a history of hiatus hernia. She has a history of obesity. That was the relevant 14-point review of systems. PAST MEDICAL HISTORY: Diagnosis of primary progressive MS. FAMILY HISTORY: Negative for early age strokes. SOCIAL HISTORY: She lives in a care home. PHYSICAL EXAMINATION: Indicates she is alert. She is responsive. She can tell me what month it is. She could not tell me the exact date. She knows what hospital she is in. She could not name the president. Cranial nerve examination 2-12 looks unremarkable. She does have somewhat diminished strength in both upper extremities, but she can move them. In the lower extremities, she has no strength, could not elicit any reflexes. She may have some edema there. Pulses are difficult to feel because of that. Cardiac examination is unremarkable. No respiratory difficulty or rhonchi was noticed. Blood pressure is 144 72, pulse rate is 124, and temperature is 99.7 now, but [place] [address] CONSULTATION Name: JENNIFER AVILA Room: [address] IN [facility]#: [id number] Admission: 02/09/18 Attend Phys: Alireza Hardin MD Discharge: Date of : 51 Report #: [id number] IMPRESSION: 1. Diagnosis of primary progressive multiple sclerosis. 2. Systemic infection with a very high white count. 3. She may be somewhat worse, but not too much worse compared to her baseline. RECOMMENDATIONS: 1. For the superintendent container terminal treatment, I think she should be on disease modifying treatment, but she has decided that she will not do that because of the side effects from medication. 2. Presently, I think we should just treat her systemic infection. 3. I will not give steroids at the moment because it may exacerbate her systemic infection and chances of helping is low because she does not look that much worse from her baseline. I discussed all of it with the patient in detail. She understands it and she wants to follow this plan. More than 50 minutes of time was spent taking care of this patient today and majority of the time was spent counseling the patient and coordinating her care. <ELECTRONICALLY SIGNED> By: Beto Gomez MD 02/15/18 1715 [id number] Gomez MD /conrado
[2018-02-15 19:01] VITALS: BP 141/87
[2018-02-15 21:01] VITALS: BP 136/72
[2018-02-15 23:01] VITALS: BP 152/69
[2018-02-16] VITALS (15 sets, daily range): BP systolic 108–161; BP diastolic 51–78
[2018-02-16 03:49] LABS: HEMATOCRIT 30.7 % (37.0-47.0); HEMOGLOBIN 9.4 gm/dL (12.0-15.0); MCH 22.9 pg (26.0-34.0); MCHC 30.6 g/dL (28.0-37.0); MPV 8.9 fl. (7.2-11.1); RBC 4.1 mil/uL (4.20-5.00); RDW-CV 16.9 % (10.5-14.5); WBC 15.9 thou/uL (4.0-11.0)
[2018-02-16 03:58] LABS: CALCIUM 8.2 mg/dL (8.5-10.1); CREATININE 0.5 mg/dL (0.6-1.3); MAGNESIUM 2.1 mg/dL (1.8-2.4); POTASSIUM 4.5 mmol/L (3.5-5.1)
[2018-02-17] VITALS (22 sets, daily range): BP systolic 100–156; BP diastolic 43–80
[2018-02-18] VITALS (9 sets, daily range): BP systolic 109–154; BP diastolic 43–78
[2018-02-18 05:10] LABS: CALCIUM 8.5 mg/dL (8.5-10.1); CREATININE 0.7 mg/dL (0.6-1.3); POTASSIUM 4.3 mmol/L (3.5-5.1)
--- NOTE | 2018-02-18 08:41 | CON ---
[address] [address] CONSULTATION Name: JENNIFER AVILA Room: [address] IN M.R.#: [id number] Admission: 02/09/18 Attend Phys: Alireza Hardin MD Discharge: Date of : 51 Report #: [id number] THIS REPORT FOR: //name// CC: Alireza Garcia DATE OF SERVICE: 02/17/2018 Infectious Disease Consultation ATTENDING PHYSICIAN: Alireza Hardin MD and Dr. Pearson REASON FOR EVALUATION: Influenza B complicated by respiratory failure in the setting of multiple sclerosis with concern about secondary bacterial pneumonia complication with MRSA positive. HISTORY OF PRESENT ILLNESS: Chart reviewed, patient examined. This is a 62-year-old known to myself, seen earlier this year, has multiple sclerosis for roughly 40 years. This is complicated by significant deficits including paraplegia, as well as diabetes mellitus who presented through the emergency room with complaints of left-sided arm weakness, dizziness, associated cough with shortness of breath. Initial evaluation confirmed positive influenza antigen B has been hospitalized in the intensive care unit on supplemental oxygen, now at 15 L, remains generally weak and dyspneic with sats of lower 90s on 15 L per high flow cannula. She was initiated on Tamiflu. In addition to that, cefepime and vancomycin has been added. She is not encephalopathic. ALLERGIES: None known. MEDICATIONS: Include ascorbic acid, loratadine, cholecalciferol, lisinopril, aspirin, vancomycin, methylprednisolone, baclofen, atorvastatin, cefepime, sucralfate, p.r.n. analgesics, antiemetics, ipratropium, albuterol inhalers. PAST MEDICAL HISTORY: As noted above, multiple sclerosis complicated by paraplegia, diabetes mellitus, hypertension, depression, anxiety, gastroparesis. SOCIAL HISTORY: Half pack a day for 45 years smoking cigarettes, no illicit drug use. No ethanol. FAMILY HISTORY: Noncontributory. REVIEW OF SYSTEMS: As above. Denies any significant gastrointestinal related complaints. She has not had diarrhea. PHYSICAL EXAMINATION: GENERAL: She appears moderately [place] [address] CONSULTATION Name: JENNIFER AVILA Room: [address]#: [id number] Admission: 02/09/18 Attend Phys: Alireza Hardin MD Discharge: Date of : 51 Report #: [id number] appearing illness, undernourishment. VITAL SIGNS: Temperature 98.1, pulse 94, respirations 33, blood pressure 140/61. SKIN: Warm, dry, no rashes. HEENT: Nasal cannula oxygen in place. NECK: Has somewhat decreased range of motion. There is no meningismus. LUNGS: Scattered coarse breath sounds. HEART: Regular, tachycardic. I do not appreciate murmur. ABDOMEN: Soft, mildly distended. There are no peritoneal signs. GENITOURINARY: Deferred. RECTAL: Deferred. LABORATORY DATA: Initial sputum culture in progress, many white cells, few Gram-positive cocci, few Gram-positive rods. Chest x-ray changes at the bases. Question of some pleural effusions, infiltrates, and some borderline cardiomegaly. Electrolytes: Sodium 135, potassium 4.5, chloride 104, bicarbonate is 28, BUN and creatinine 20 and 0.5. Estimated GFR of 124. CBC: White count of 59, H and H 9.4 and 30.7, platelets of 434. Urinary antigens for Legionella and Pneumococcus dating back to 02/13 were negative. ASSESSMENT: Influenza A and B complicated by respiratory failure. Now, there is concern about superimposed secondary bacterial pneumonitis, the evidence of positive Methicillin-resistant Staphylococcus aureus surveillance, as well as sputum, appears to be with significant white cells with gram-positive cocci. I think by extending the vancomycin, we could probably back off on the cefepime at this point. She certainly remains quite tenuous. Discussed with Dr. Pearson. <ELECTRONICALLY SIGNED> By: Tobin Ortiz MD 02/18/18 0841 [id number] Ortiz MD /nt
[2018-02-19] VITALS: BP 113/45
[2018-02-19 04:00] VITALS: BP 109/71
[2018-02-19 05:59] LABS: HEMATOCRIT 29.4 % (37.0-47.0); MCH 22.9 pg (26.0-34.0); MCHC 30.6 g/dL (28.0-37.0); MCV 74.7 fL (80.0-100.0); MPV 8.7 fl. (7.2-11.1); NUCLEATED RBCS 0 /100WBC; PLATELET COUNT* 428 thou/uL (150-400); RBC 3.94 mil/uL (4.20-5.00); RDW-CV 17.3 % (10.5-14.5); WBC 19.1 thou/uL (4.0-11.0)
[2018-02-19 06:13] LABS: CALCIUM 8.1 mg/dL (8.5-10.1); CREATININE 0.5 mg/dL (0.6-1.3); POTASSIUM 3.9 mmol/L (3.5-5.1)
[2018-02-19 06:58] LABS: ABSOLUTE LYMPHOCYTES 2.3 thou/uL (0.8-5.3); ABSOLUTE MONOCYTES 0.4 thou/uL (0.0-1.2); ABSOLUTE NEUTROPHILS 16.4 thou/uL (1.6-8.1); METAMYELOCYTES 1 %; PLATELET ESTIMATE ADEQUATE
[2018-02-19 06:59] LABS: HYPOCHROMASIA 2+; MICROCYTES 2+
[2018-02-19 07:00] LABS: ANISOCYTOSIS 1+
[2018-02-19 07:30] VITALS: BP 133/50
[2018-02-19 11:39] VITALS: BP 141/61
[2018-02-19 16:00] VITALS: BP 145/60
[2018-02-20] VITALS: BP 141/70
[2018-02-20 04:00] VITALS: BP 121/56
[2018-02-20 04:46] LABS: ABSOLUTE LYMPHOCYTES 2.6 thou/uL (0.8-5.3); ABSOLUTE NEUTROPHILS 22.9 thou/uL (1.6-8.1); BASOPHILS 0.1 %; HEMATOCRIT 33.2 % (37.0-47.0); LYMPHOCYTES 9.7 %; MCH 22.5 pg (26.0-34.0); MCHC 30.3 g/dL (28.0-37.0); MCV 74.4 fL (80.0-100.0); MONOCYTES 3.7 %; MPV 8.6 fl. (7.2-11.1); NUCLEATED RBCS 0 /100WBC; PLATELET COUNT* 465 thou/uL (150-400); POLYS 86.5 %; RBC 4.46 mil/uL (4.20-5.00); RDW-CV 17.9 % (10.5-14.5); WBC 26.4 thou/uL (4.0-11.0)
[2018-02-20 05:12] LABS: CALCIUM 8.5 mg/dL (8.5-10.1); CREATININE 0.5 mg/dL (0.6-1.3); MAGNESIUM 2.1 mg/dL (1.8-2.4); POTASSIUM 4.4 mmol/L (3.5-5.1)
[2018-02-20 12:40] VITALS: BP 133/63
[2018-02-20 16:23] VITALS: BP 154/62
[2018-02-20 19:54] VITALS: BP 118/50
[2018-02-21] VITALS: BP 118/60
[2018-02-21 04:00] VITALS: BP 145/52
[2018-02-21 06:44] LABS: HEMATOCRIT 32.1 % (37.0-47.0); HEMOGLOBIN 9.9 gm/dL (12.0-15.0); MCHC 30.8 g/dL (28.0-37.0); MCV 74.5 fL (80.0-100.0); MPV 8.5 fl. (7.2-11.1); RBC 4.31 mil/uL (4.20-5.00); RDW-CV 17.3 % (10.5-14.5); WBC 24.9 thou/uL (4.0-11.0)
[2018-02-21 06:53] LABS: CALCIUM 8.9 mg/dL (8.5-10.1); CREATININE 0.6 mg/dL (0.6-1.3)
[2018-02-21 12:00] VITALS: BP 126/53
[2018-02-21 16:00] VITALS: BP 159/76
[2018-02-21 20:00] VITALS: BP 113/58
[2018-02-22] VITALS: BP 115/54
[2018-02-22 05:35] LABS: CALCIUM 8.4 mg/dL (8.5-10.1); CREATININE 0.5 mg/dL (0.6-1.3); POTASSIUM 4.4 mmol/L (3.5-5.1)
[2018-02-22 16:00] VITALS: BP 123/63
[2018-02-22 20:30] VITALS: BP 129/67
[2018-02-23 04:08] LABS: HEMATOCRIT 30.7 % (37.0-47.0); HEMOGLOBIN 9.4 gm/dL (12.0-15.0); MCH 22.8 pg (26.0-34.0); MCHC 30.6 g/dL (28.0-37.0); MCV 74.5 fL (80.0-100.0); MPV 8.5 fl. (7.2-11.1); NUCLEATED RBCS 0 /100WBC; PLATELET COUNT* 413 thou/uL (150-400); RBC 4.13 mil/uL (4.20-5.00); RDW-CV 17.2 % (10.5-14.5)
[2018-02-23 04:32] LABS: ALBUMIN 2.2 g/dL (3.4-5.0); CALCIUM 8.1 mg/dL (8.5-10.1); CREATININE 0.5 mg/dL (0.6-1.3); MAGNESIUM 2.1 mg/dL (1.8-2.4); PHOSPHORUS* 3.5 mg/dL (2.5-4.9); POTASSIUM 3.9 mmol/L (3.5-5.1); TOTAL BILIRUBIN 0.2 mg/dL (<0.1-1.0); TOTAL PROTEIN 4.9 g/dL (6.4-8.2)
[2018-02-23 08:00] VITALS: BP 126/70
[2018-02-23 09:04] LABS: ABSOLUTE LYMPHOCYTES 2.3 thou/uL (0.8-5.3); ABSOLUTE MONOCYTES 0.8 thou/uL (0.0-1.2); ABSOLUTE NEUTROPHILS 17.9 thou/uL (1.6-8.1); CLUMPED PLTS FEW; PLATELET ESTIMATE INCREASED
[2018-02-23 09:05] LABS: HYPOCHROMASIA 1+; MICROCYTES 2+; TARGET CELLS Occasional
[2018-02-23 15:43] VITALS: BP 111/48
[2018-02-23 20:00] VITALS: BP 104/61
[2018-02-24 03:58] LABS: HEMATOCRIT 31.2 % (37.0-47.0); HEMOGLOBIN 9.6 gm/dL (12.0-15.0); MCH 22.8 pg (26.0-34.0); MCHC 30.8 g/dL (28.0-37.0); MCV 74.1 fL (80.0-100.0); MPV 8.6 fl. (7.2-11.1); RBC 4.21 mil/uL (4.20-5.00); RDW-CV 16.9 % (10.5-14.5); WBC 18.9 thou/uL (4.0-11.0)
[2018-02-24 04:04] LABS: CREATININE 0.5 mg/dL (0.6-1.3); MAGNESIUM 2.1 mg/dL (1.8-2.4); POTASSIUM 4.3 mmol/L (3.5-5.1)
[2018-02-24 08:00] VITALS: BP 126/64
[2018-02-24 16:35] VITALS: BP 123/60
[2018-02-24 20:15] VITALS: BP 143/62
[2018-02-25 08:40] VITALS: BP 128/67
[2018-02-25 11:28] LABS: HEMATOCRIT 32.7 % (37.0-47.0); HEMOGLOBIN 9.9 gm/dL (12.0-15.0); MCH 22.6 pg (26.0-34.0); MCHC 30.2 g/dL (28.0-37.0); MCV 74.7 fL (80.0-100.0); MPV 8.4 fl. (7.2-11.1); RBC 4.37 mil/uL (4.20-5.00); RDW-CV 17.1 % (10.5-14.5); WBC 15.4 thou/uL (4.0-11.0)
[2018-02-25] MEDS ORDERED: PREDNISONE 10 M10 MG PO (15:00)
[2018-02-25 15:01] VITALS: BP 128/67
[2018-02-25 17:18] VITALS: BP 128/67
== END 2018-02-25 17:00 | DRG 871 ==
LOC: M.ERS 18:23 → M.2W 21:12 → M.TBA-ER 21:12 → M.2W 21:32 → M.ICU 02-12 13:59 → M.2W 02-18 06:30 → M.3W 02-22 16:36
PROVIDERS: Family Medicine; Internal Medicine; Internal Medicine Critical Care Medicine; Internal Medicine Pulmonary Disease; Physician Assistant; ADMIT Internal Medicine
PROC: 5A09357 Assistance with Respiratory Ventilation, Less than 24 Consecutive Hours, Continuous Positive Airway Pressure (ICD-10-PCS; principal; 2018-02-11)
PROC: 5A09357 Assistance with Respiratory Ventilation, Less than 24 Consecutive Hours, Continuous Positive Airway Pressure (ICD-10-PCS; 2018-02-12)
PROC: 5A09357 Assistance with Respiratory Ventilation, Less than 24 Consecutive Hours, Continuous Positive Airway Pressure (ICD-10-PCS; 2018-02-13)
PROC: 5A09357 Assistance with Respiratory Ventilation, Less than 24 Consecutive Hours, Continuous Positive Airway Pressure (ICD-10-PCS; 2018-02-14)
PROC: 5A09357 Assistance with Respiratory Ventilation, Less than 24 Consecutive Hours, Continuous Positive Airway Pressure (ICD-10-PCS; 2018-02-15)
PROC: 5A09357 Assistance with Respiratory Ventilation, Less than 24 Consecutive Hours, Continuous Positive Airway Pressure (ICD-10-PCS; 2018-02-16)
PROC: 5A09357 Assistance with Respiratory Ventilation, Less than 24 Consecutive Hours, Continuous Positive Airway Pressure (ICD-10-PCS; 2018-02-18)
PROC: 5A09357 Assistance with Respiratory Ventilation, Less than 24 Consecutive Hours, Continuous Positive Airway Pressure (ICD-10-PCS; 2018-02-19)
PROC: 5A09357 Assistance with Respiratory Ventilation, Less than 24 Consecutive Hours, Continuous Positive Airway Pressure (ICD-10-PCS; 2018-02-20)
DX: A41.89 Other specified sepsis (principal); G82.50 Quadriplegia, unspecified; J10.08 Influenza due to other identified influenza virus with other specified pneumonia; J15.212 Pneumonia due to Methicillin resistant Staphylococcus aureus; J96.21 Acute and chronic respiratory failure with hypoxia; J96.22 Acute and chronic respiratory failure with hypercapnia; E44.0 Moderate protein-calorie malnutrition; J44.1 Chronic obstructive pulmonary disease with (acute) exacerbation; J44.0 Chronic obstructive pulmonary disease with (acute) lower respiratory infection; Z66 Do not resuscitate; B97.89 Other viral agents as the cause of diseases classified elsewhere; E87.70 Fluid overload, unspecified; F41.1 Generalized anxiety disorder; G35 Multiple sclerosis; F17.210 Nicotine dependence, cigarettes, uncomplicated; F32.9 Major depressive disorder, single episode, unspecified; F41.9 Anxiety disorder, unspecified; D50.9 Iron deficiency anemia, unspecified; E66.9 Obesity, unspecified; K44.9 Diaphragmatic hernia without obstruction or gangrene; I10 Essential (primary) hypertension; E11.65 Type 2 diabetes mellitus with hyperglycemia; E11.43 Type 2 diabetes mellitus with diabetic autonomic (poly)neuropathy; K31.84 Gastroparesis; B95.62 Methicillin resistant Staphylococcus aureus infection as the cause of diseases classified elsewhere; Z79.84 Long term (current) use of oral hypoglycemic drugs; Z79.4 Long term (current) use of insulin; Z68.32 Body mass index [BMI] 32.0-32.9, adult

== ENCOUNTER 2018-05-10 08:45 | Inpatient (IN) | payer MEDICARE, MEDICAID ==
[~2018-05-10] VITALS: Ht 165.1 cm; Wt 96.6 kg
[~2018-05-10 08:45] MED LIST changes: +IPRAT-ALBUT 0.5-3 ML INH; +MUCINEX600 MG PO; +PREDNISONE 10 M10 MG PO
[2018-05-10 08:50] VITALS: BP 144/71
[2018-05-10 09:17] LABS: HEMOGLOBIN 10.6 gm/dL (12.0-15.0); MCH 19.2 pg (26.0-34.0); MCHC 30.2 g/dL (28.0-37.0); MCV 63.7 fL (80.0-100.0); MPV 9.2 fl. (7.2-11.1); NUCLEATED RBCS 0 /100WBC; PLATELET COUNT* 325 thou/uL (150-400); RDW-CV 20.4 % (10.5-14.5); WBC 29.3 thou/uL (4.0-11.0)
[2018-05-10 09:28] LABS: INFLUENZA A ANTIGEN None Detected (None Detect); INFLUENZA B ANTIGEN None Detected (None Detect)
[2018-05-10 09:30] LABS: URINE BILIRUBIN NEGATIVE (Negative); URINE BLOOD NEGATIVE (Negative); URINE CLARITY CLEAR; URINE COLOR YELLOW; URINE GLUCOSE-RANDOM 2+ (Negative); URINE KETONES NEGATIVE (Negative); URINE LEUKOCYTES-REFLEX NEGATIVE (Negative); URINE NITRITE-REFLEX NEGATIVE (Negative); URINE PROTEIN NEGATIVE (Negative); URINE UROBILINOGEN 0.2 E.U./dl (0.2-1.0)
[2018-05-10 09:44] LABS: ALBUMIN 2.7 g/dL (3.4-5.0); ALKALINE PHOSPHATASE 107 U/L (46-116); BUN 10 mg/dL (7-18); CALCIUM 8.4 mg/dL (8.5-10.1); CHLORIDE 98 mmol/L (98-107); CO2 25 mmol/L (21-32); CREATININE 0.7 mg/dL (0.6-1.3); GLUCOSE 259 mg/dL (70-99); LIPASE 87 U/L (73-393); NT-PRO BRAIN NAT PEPTIDE 106 pg/mL (<300); SGOT 32 U/L (15-37); SGPT 31 U/L (30-65); TOTAL BILIRUBIN 0.4 mg/dL (<0.1-1.0); TOTAL PROTEIN 6.5 g/dL (6.4-8.2); TROPONIN-I LEVEL <0.06 ng/mL (<0.06)
[2018-05-10 09:51] LABS: BE 0 mmol/L (-2 to +3); PCO2 37.3 mmHg (35.0-45.0); pH 7.428 (7.340-7.450)
[2018-05-10 09:53] LABS: PO2 57.2 mmHg (75.0-100.0)
[2018-05-10 09:57] LABS: ANION GAP 7 mmol/L (7-16); SODIUM 130 mmol/L (136-145)
[2018-05-10 11:08] LABS: ABSOLUTE LYMPHOCYTES 4.1 thou/uL (0.8-5.3); ABSOLUTE MONOCYTES 1.5 thou/uL (0.0-1.2); ABSOLUTE NEUTROPHILS 23.7 thou/uL (1.6-8.1); HYPOCHROMASIA 2+; MICROCYTES 2+; PLATELET ESTIMATE ADEQUATE; POLYCHROMASIA 1+
[2018-05-10 11:09] LABS: ANISOCYTOSIS 2+; LARGE PLATELETS OCCASIONAL; OVALOCYTES 1+
[2018-05-10 11:10] LABS: POIKILOCYTOSIS 1+
[2018-05-10 11:39] VITALS: BP 112/61
[2018-05-10 15:48] VITALS: BP 106/60
[2018-05-10 20:46] VITALS: BP 104/57
[2018-05-10 23:49] VITALS: BP 94/47
[2018-05-11 04:00] VITALS: BP 97/56
[2018-05-11 05:25] LABS: HEMATOCRIT 29.6 % (37.0-47.0); HEMOGLOBIN 8.7 gm/dL (12.0-15.0); MCHC 29.4 g/dL (28.0-37.0); MCV 64.4 fL (80.0-100.0); MPV 9.2 fl. (7.2-11.1); RBC 4.6 mil/uL (4.20-5.00); RDW-CV 19.4 % (10.5-14.5); WBC 21.3 thou/uL (4.0-11.0)
[2018-05-11 05:46] LABS: CALCIUM 8.7 mg/dL (8.5-10.1); CREATININE 0.6 mg/dL (0.6-1.3); MAGNESIUM 2.3 mg/dL (1.8-2.4); POTASSIUM 3.8 mmol/L (3.5-5.1)
[2018-05-11 08:07] VITALS: BP 109/56
--- NOTE | 2018-05-11 12:11 | EKG ---
[place] [address] ELECTROCARDIOGRAM REPORT Name: JENNIFER AVILA Room: [address] ADM IN ..#: [id number] Admission: 05/10/18 Attend Phys: Alireza Hardin MD Discharge: Date of : 53 Report #: [id number] THIS REPORT FOR: //name// [facility] ED Test Date: 2018-05-10 Test Time: 09:04:46 Pat Name: JENNIFER AVILA Department: Room: [facility] Gender: F [employer] Supervisor: GE : 1955 Requested By: Chet Rod Order Number: [id number] MD: Felipe Byrd Measurements Intervals [place] Rate: 138 P: 55 CA: 93 QRS: 14 QRSD: 88 T: -15 QT: 309 QTc: 469 Interpretive Statements Sinus tachycardia Baseline wander in lead(s) V4,V6 Compared to ECG 02/09/2018 18:36:09 rate increased Electronically Signed On 05-11-2018 12:11:06 BRIM BUSTER by Felipe Byrd [email or web address] <ELECTRONICALLY SIGNED> By: Felipe Byrd MD, [facility] 05/11/18 1211 0904 0904 Felpie Byrd MD, [facility] /EPI
[2018-05-11 12:27] VITALS: BP 103/42
[2018-05-11 16:00] VITALS: BP 114/56
[2018-05-11 20:15] VITALS: BP 110/49
[2018-05-12] VITALS: BP 102/46
[2018-05-12 04:00] VITALS: BP 119/43
--- NOTE | 2018-05-12 07:37 | CON ---
[address] [address] CONSULTATION Name: JENNIFER AVILA Room: [address] IN M.R.#: [id number] Admission: 05/10/18 Attend Phys: Alireza Hardin MD Discharge: Date of : 51 Report #: [id number] THIS REPORT FOR: //name// CC: Alireza Garcia DATE OF SERVICE: 05/11/2018 INFECTIOUS DISEASE CONSULTATION ATTENDING PHYSICIAN: Alireza Hardin M.D. REASON FOR EVALUATION: Acute pneumonitis in the setting of chronic lung disease, complicated by respiratory failure. HISTORY OF PRESENT ILLNESS: Chart reviewed, the patient examined. This is a 62-year-old with multiple complex medical history, certainly given her age, including multiple sclerosis and diabetes mellitus. She is paraplegic and resides in a facility, who has frequent lower respiratory tract infections including pneumonitis, who generally felt reasonably well when she went to bed. However, woke the morning of the day of admission with significant onset of dyspnea associated with fevers and chills. She was treated with inhalation therapy without improvement. She was found to be hypoxemic. She has known underlying lung disease. As a result, she was brought to the Emergency Room. Imaging confirmed feqlr-ry-nkduglo type infiltrates. It is notable that she has a positive history in 02/2018 with surveillance MRSA. Lactic acid was elevated at 2.2. ABGs showed pH of 7.428, pCO2 of 37.3 and pO2 of 57.2 on 15 liters nonrebreather mask. This is down to roughly 5 liters at this point. She is empirically started on combination therapy with piperacillin and tazobactam as well as vancomycin. She has a persistent cough which is nonproductive. Initial temperature was 101.9, repeat this morning was 98.5. She is fairly lucid. ALLERGIES: None known. MEDICATIONS: Current medicines include levofloxacin, vancomycin, pantoprazole, metoclopramide, atorvastatin, insulin, Zosyn, baclofen, methylprednisolone, ascorbic acid, nystatin, loratadine, lisinopril, linagliptin, aspirin and sucralfate. PAST MEDICAL HISTORY: Includes diabetes mellitus, multiple sclerosis, hypertension, history of depression, anxiety, some venous stasis insufficiency in the lower extremity, gastroparesis, reflux, recurrent pneumonitis, has some bronchiectasis and morbid obesity. SOCIAL HISTORY: She smokes cigarettes on a daily basis[place] [address] CONSULTATION Name: JENNIFER AVILA Room: [address]#: [id number] Admission: 05/10/18 Attend Phys: Alireza Hardin MD Discharge: Date of : 53 Report #: [id number] illicit drug use. FAMILY HISTORY: Noncontributory. REVIEW OF SYSTEMS: Otherwise, unremarkable 10-point review of systems, with the exception of described above in the history of present illness. PHYSICAL EXAMINATION: GENERAL: She appears chronically ill, undernourished, is pleasant, cooperative, in uzoa-dy-pmbzipdf distress. She has got nasal cannula oxygen in place going fairly high flow. VITAL SIGNS: Temperature 98.5, pulse 95, respirations 20 and blood pressure 109/56. SKIN: Warm, dry. No apparent rashes. NECK: Supple. HEENT: Extraocular muscles intact. LUNGS: Scattered coarse breath sounds bilaterally. HEART: Regular. Borderline tachycardic. I do not appreciate a murmur. ABDOMEN: Distended, soft. There are no peritoneal signs. No tenderness. EXTREMITIES: Distal lower extremities have minimal edema. GENITOURINARY: Deferred. RECTAL: Deferred. LABORATORY DATA: Influenza antigen was negative. Urinalysis otherwise unremarkable. PT of 10.0, INR of 1.0. Chest x-ray was fairly unremarkable. A CT did show jzrbo-es-swtmyvt infiltrates involving multiple lobes. Lactic acid was 2.2, repeat was 1.2. CBC: White count of 29.3, H and H 10.6 and 35.0 and platelets of 325,000 and primarily neutrophilia with mild monocytosis. Electrolytes: Sodium 130, potassium 4.0, chloride 98, bicarbonate is 25, anion gap of 7, BUN and creatinine 10 and 0.7 and glucose 259. LFTs unremarkable. Albumin of 2.7. Total protein of 6.5. Estimated GFR of 84. ASSESSMENT AND PLAN: Respiratory failure in the setting of chronic lung disease, probably with an acute infection. She is showing some improvement since presentation. We will continue empiric combination therapy. It should be noted she has history of MRSA related to her airway and certainly is in a tenuous situation. We will await pending results. There is a history recurrent pneumonias and no evidence at this point of other occult process. <ELECTRONICALLY SIGNED> By: Tobin Ortiz MD 05/12/18 0737 1138 [id number] Ortiz MD /nt
[2018-05-12 08:00] VITALS: BP 128/65
--- NOTE | 2018-05-12 09:37 | CON ---
[address] [address] CONSULTATION Name: JENNIFER AVILA Room: [address] IN M.R.#: [id number] Admission: 05/10/18 Attend Phys: Alireza Hardin MD Discharge: Date of : 53 Report #: [id number] THIS REPORT FOR: //name// CC: Alireza Garcia REASON FOR CONSULTATION: Respiratory failure. HISTORY OF PRESENT ILLNESS: This is a 62-year-old female patient who had progressive multiple sclerosis. She is essentially bedbound, although she uses a wheelchair. She has COPD and unfortunately continues to smoke. She lives at a long-term facility. She was actually hospitalized at this facility back in February, had a prolonged hospitalization for COPD exacerbation and pneumonia. She presented with few days increasing shortness of breath and admitted on 05/10/2018. She reported wheezing that she is actually able to hear her own self wheezing and she had increasing shortness of breath with cough. The cough is congested and she was not producing any sputum. Our group had seen the patient back in February when she was hospitalized as mentioned above. At that time, she required BiPAP support too. She was discharged to a facility and she tells me that she is using oxygen and BiPAP at night only and oxygen during the daytime. PAST MEDICAL HISTORY: Multiple sclerosis, gastroparesis, hiatal hernia, diabetes mellitus, urinary incontinence, hypertension. MEDICATIONS: She is on baby aspirin, metoclopramide, multivitamin, loratadine, Carafate, lisinopril, Mucinex, DuoNeb. SOCIAL HISTORY: Continues to smoke 10 cigarettes per day. Lives in a nursing facility. FAMILY HISTORY: Positive for COPD. ALLERGIES: No known drug allergies. HOME MEDICATIONS: Reviewed as mentioned above. REVIEW OF SYSTEMS: She had no trauma, no headache, no congestion, no rhinitis, no sore throat, no sick contact, no nausea, no vomiting, no dysuria, no frequency, no urgency, no bleeding from any orifice. A 12-point review of systems reviewed with the patient negative other than those mentioned above. PHYSICAL EXAMINATION: VITAL SIGNS: She was on 5 liters oxygen during my visits, more than 90% for the O2 saturation, breathing 19 times a minute, temperature 36.8, blood pressure 97/56. [place] [address] CONSULTATION Name: JENNIFER AVILA Room: [address] IN [facility]#: [id number] Admission: 05/10/18 Attend Phys: Alireza Hardin MD Discharge: Date of : 51 Report #: [id number] GENERAL: Awake, alert, answers question appropriately, in no distress. HEAD: Normocephalic, atraumatic. EYES: Pupils reactive to light. ENT: External ear looks healthy and normal. Oral cavity: Mallampati 2-3. No thrush. CHEST: Diminished air movement bilaterally with prolonged expiratory phase and wheezes. Nontender. Excursion is normal. No subcutaneous emphysema. ABDOMEN: Obese, soft, lax, nontender. No masses felt, no rebound, no rigidity. EXTREMITIES: Lower extremity, trace edema. No calf tenderness. NEUROLOGIC: Alert, oriented. LYMPHATIC: No palpable lymph node. SKIN: Normal for age and race. LABORATORY DATA: Her ABGs yesterday morning, 7.42/35/57 and this was done on 15 liters oxygen. Since then, she is now down to 5 liters oxygen. Her white blood count was 29.3, hemoglobin 10.6, platelet 325. INR of 1. Creatinine of 0.6, potassium 3.8, sodium 138. BNP not elevated. Influenza A and B screen negative. Her chest x-ray demonstrated no acute process, very large hernia. CT of the chest confirmed the presence of hernia and basilar infiltrates, more on the left than the right. IMPRESSION: 1. Qeqtx-sb-sokpftz hypoxic respiratory failure. 2. Chronic obstructive pulmonary disease exacerbation. 3. Pneumonia. 4. Multiple sclerosis. 5. History of methicillin resistant Staphylococcus aureus infection. 6. Coronary artery disease. 7. Tobacco abuse. At this point, the patient will be treated for the pneumonia. She is on levofloxacin, vancomycin and cefepime. Continue the steroids, scheduled nebulization treatment. Continue the Mucinex. Follow cultures. Wean oxygen down as tolerated. At baseline, she does not use oxygen during the daytime. I did discuss with her and bereavement counselor her about smoking cessation. She did not report interest for quitting smoking at this point. We will continue to follow along with you. Thank you for the consult. <ELECTRONICALLY SIGNED> By: Yoon Hargrove MD 05/12/18 0937 0806 [id number] Hargrove MD /conrado
[2018-05-12 11:29] VITALS: BP 122/56
[2018-05-12 15:22] VITALS: BP 116/54
[2018-05-12 20:49] VITALS: BP 121/49
[2018-05-13 00:18] VITALS: BP 132/57
[2018-05-13 04:00] VITALS: BP 116/54
[2018-05-13 08:00] VITALS: BP 130/60
[2018-05-13 11:58] VITALS: BP 124/55
[2018-05-13 15:33] VITALS: BP 141/62
[2018-05-13 20:00] VITALS: BP 119/83
[2018-05-14] VITALS (7 sets, daily range): BP systolic 125–169; BP diastolic 44–73
[2018-05-14 05:58] LABS: HEMATOCRIT 29.1 % (37.0-47.0); HEMOGLOBIN 8.7 gm/dL (12.0-15.0); MCH 19.2 pg (26.0-34.0); MCHC 29.8 g/dL (28.0-37.0); MCV 64.5 fL (80.0-100.0); MPV 8.9 fl. (7.2-11.1); RBC 4.52 mil/uL (4.20-5.00); RDW-CV 20.1 % (10.5-14.5); WBC 8.8 thou/uL (4.0-11.0)
[2018-05-14 06:08] LABS: CALCIUM 8.2 mg/dL (8.5-10.1); CREATININE 0.5 mg/dL (0.6-1.3); POTASSIUM 4.1 mmol/L (3.5-5.1)
[2018-05-14] MEDS ORDERED: PREDNISONE 10 M10 MG PO (15:50)
[2018-05-14] MEDS ORDERED: LEVAQUIN 500 M500 M2 PO (15:52)
[2018-05-14] MEDS ORDERED: DULCOLAX5 MG PO (16:02)
[2018-05-14] MEDS ORDERED: DIPHENHYDRAMINE25 M3 PO (16:05)
== END 2018-05-14 18:00 | DRG 871 ==
LOC: M.ERS 08:45 → M.TBA-ER 10:31 → M.2W 10:31
PROVIDERS: Family Medicine; Internal Medicine; ADMIT Internal Medicine
PROC: 5A09357 Assistance with Respiratory Ventilation, Less than 24 Consecutive Hours, Continuous Positive Airway Pressure (ICD-10-PCS; principal; 2018-05-10)
PROC: 5A09357 Assistance with Respiratory Ventilation, Less than 24 Consecutive Hours, Continuous Positive Airway Pressure (ICD-10-PCS; 2018-05-11)
PROC: 5A09357 Assistance with Respiratory Ventilation, Less than 24 Consecutive Hours, Continuous Positive Airway Pressure (ICD-10-PCS; 2018-05-12)
PROC: 5A09357 Assistance with Respiratory Ventilation, Less than 24 Consecutive Hours, Continuous Positive Airway Pressure (ICD-10-PCS; 2018-05-14)
DX: A41.9 Sepsis, unspecified organism (principal); J96.21 Acute and chronic respiratory failure with hypoxia; R53.2 Functional quadriplegia; J15.212 Pneumonia due to Methicillin resistant Staphylococcus aureus; J44.1 Chronic obstructive pulmonary disease with (acute) exacerbation; J44.0 Chronic obstructive pulmonary disease with (acute) lower respiratory infection; J96.12 Chronic respiratory failure with hypercapnia; F32.9 Major depressive disorder, single episode, unspecified; F41.1 Generalized anxiety disorder; E11.43 Type 2 diabetes mellitus with diabetic autonomic (poly)neuropathy; K31.84 Gastroparesis; K21.9 Gastro-esophageal reflux disease without esophagitis; B95.3 Streptococcus pneumoniae as the cause of diseases classified elsewhere; G35 Multiple sclerosis; Z66 Do not resuscitate; I25.10 Atherosclerotic heart disease of native coronary artery without angina pectoris; I10 Essential (primary) hypertension; E66.01 Morbid (severe) obesity due to excess calories; F17.210 Nicotine dependence, cigarettes, uncomplicated; Z68.34 Body mass index [BMI] 34.0-34.9, adult; Z79.4 Long term (current) use of insulin; Z79.82 Long term (current) use of aspirin; Z79.899 Other long term (current) drug therapy; Z74.01 Bed confinement status; Z82.5 Family history of asthma and other chronic lower respiratory diseases

== ENCOUNTER → 2021-02-09 | Outpatient (CLI) | payer MEDICARE, MEDICAID ==
[~2021-02-09] MED LIST changes: +DIPHENHYDRAMINE25 M3 PO; +DULCOLAX5 MG PO; +LEVAQUIN 500 M500 M2 PO
== END ==
LOC: M.RAD 08:53
PROVIDERS: ATTEND Internal Medicine Geriatric Medicine
DX: Z12.31 Encounter for screening mammogram for malignant neoplasm of breast (principal)